=== PATIENT | female | born 1980 | race African-American/Black ===

== ENCOUNTER → 2016-05-03 | Outpatient (REF) | payer OTHER ==
[~2016-05-03] MED LIST: CLEO150C PO; COMP1TAB PO; IBUP-1114 PO; SENN8.6T17 PO; SILV-4 TOP; ZOFR8TAB PO
[2016-05-03 17:51] LABS: ALBUMIN 3.6 GM/DL (3.2-5.2); ALBUMIN/GLOBULIN RATIO 1.24 (1.00-1.93); ALKALINE PHOSPHATASE 166 U/L (45-117); ALT/SGPT 19 U/L (12-78); ANION GAP 8 MEQ/L (8-16); AST/SGOT 14 U/L (15-37); BLOOD UREA NITROGEN 7 MG/DL (7-18); CARBON DIOXIDE LEVEL 27 MEQ/L (21-32); CHLORIDE LEVEL 108 MEQ/L (98-107); CREATININE FOR GFR 0.66 MG/DL (0.55-1.02); FREE T4 1.04 NG/DL (0.76-1.46); GLOMERULAR FILTRATION RATE > 60.0 (>60); GLUCOSE, FASTING 80 MG/DL (70-105); POTASSIUM SERUM 4.3 MEQ/L (3.5-5.1); SODIUM LEVEL 143 MEQ/L (136-145); TOTAL PROTEIN 6.5 GM/DL (6.4-8.2)
== END | disposition home or self-care (01) ==
LOC: M SFHCLERA 10:51
PROVIDERS: ATTEND Family Medicine
DX: R10.11 Right upper quadrant pain (principal); E06.4 Drug-induced thyroiditis
CPT/HCPCS: 80053; 84439; 84443; G0463

== ENCOUNTER → 2016-05-10 | Outpatient (CLI) | payer OTHER ==
--- NOTE | 2016-05-10 15:49 | REP ---
Whole body bone scan: History: Right upper quadrant pain. History of left breast carcinoma diagnosed in March of 2015. Comparison bone scan is from June 16, 2015. Technique: 22.0 mCi of technetium 99m MDP is injected and standard whole body bone scan imaging is acquired. Scintigraphic findings: There is soft tissue uptake in both breasts, left a little more prominently than right unchanged from the prior study. This is nonspecific. There is uptake in bilateral kidneys and in the urinary bladder. Skeletal uptake is normal. There is no evidence to suggest skeletal metastatic disease. Exam is otherwise unremarkable. Impression: No evidence of bony metastasis. No change from comparison bone scan June 16, 2015. Signed by Guerrero Orellana MD 05/10/2016 04:51 P
== END | disposition home or self-care (01) ==
LOC: M RAD 09:19
PROVIDERS: ATTEND Family Medicine
DX: R10.11 Right upper quadrant pain (principal); Z85.3 Personal history of malignant neoplasm of breast

== ENCOUNTER → 2016-05-10 | Outpatient (CLI) | payer OTHER ==
--- NOTE | 2016-05-10 16:57 | REP ---
Right upper quadrant sonography: History: Right upper quadrant pain. History of breast carcinoma. Elevated liver function studies. Comparison study: July 08, 2014. CT study March 25, 2016. Findings: Scanning through the right upper quadrant of the abdomen demonstrates a normal sized, thin-walled gallbladder without evidence of stone or polyp. Common bile duct is normal measuring 0.3 cm in greatest diameter. No focal liver lesion is seen. Liver size is normal. No pancreatic abnormality is observed. No right renal abnormality is seen. There is no evidence of ascites. The right kidney measures 9.4 x 6.6 x 5.3 cm. Impression: Negative right upper quadrant sonography. Signed by Guerrero Orellana MD 05/10/2016 04:48 P
== END | disposition home or self-care (01) ==
LOC: M LRY 09:19
PROVIDERS: ATTEND Family Medicine
DX: R10.11 Right upper quadrant pain (principal); Z85.3 Personal history of malignant neoplasm of breast

== ENCOUNTER → 2016-05-12 | Outpatient (CLI) | payer OTHER ==
--- NOTE | 2016-05-12 15:20 | REP ---
Digital screening bilateral mammography with CAD: History: Personal history of breast carcinoma treated with lumpectomy, lymph node dissection, radiation therapy in April 23, 2015. Comparison mammography March 10, 2015 Mammographic findings: Breast parenchyma is heterogeneously dense in a pattern which inhibits the sensitivity of mammography. There is marked diffuse thickening of the skin of the left breast. There are multiple surgical clips in the left axillary soft tissues. A scar marker is seen projecting in the upper outer quadrant. The mass lesion observed laterally on March 10, 2015 is no longer apparent. There is diffuse stromal thickening in the left breast. These are compatible with expected post-treatment changes. The right breast shows no evidence of mass, neodensity, microcalcification or architectural distortion. Impression: BIRADS category 2 benign bilateral mammographic findings. Post-treatment changes on the left. Repeat screening mammography recommended 1 year. BI-RADS/ACR category 2 mammogram. Benign finding(s). Routine annual screening mammography (for women over age 40). This mammogram was interpreted with the aid of an FDA-approved computer-aided detection system. The patient states she/he had a clinical breast exam in January 2016. The patient letter being requested is M2. Dense. Signed by Guerrero Orellana MD 05/12/2016 04:34 P
== END | disposition home or self-care (01) ==
LOC: M RAD 14:03
PROVIDERS: ATTEND Internal Medicine Medical Oncology
DX: Z12.31 Encounter for screening mammogram for malignant neoplasm of breast (principal); Z85.3 Personal history of malignant neoplasm of breast; Z92.3 Personal history of irradiation

== ENCOUNTER → 2016-08-04 | Outpatient (REF) | payer OTHER ==
[2016-08-04 17:05] LABS: FREE T4 1.02 NG/DL (0.76-1.46)
== END ==
LOC: M SFHCLERA 14:02
PROVIDERS: ATTEND Family Medicine
DX: E06.4 Drug-induced thyroiditis (principal)
CPT/HCPCS: 84439; 84443; G0463

== ENCOUNTER → 2016-10-13 | Outpatient (REF) | payer OTHER | LOC: M SFHCLERA 11:54 | PROVIDERS: ATTEND Nurse Practitioner Family | DX: R35.0 Frequency of micturition (principal) ==

== ENCOUNTER 2017-04-15 13:39 | Emergency (ER) | payer OTHER ==
[2017-04-15] MEDS: NS 1,000 ML IV (15:44)
[2017-04-15 15:47] LABS: BASO % 0.4 % (0.0-1.0); EOS % 0.2 % (0.0-3.0); HEMATOCRIT 37.4 % (36.0-47.0); HEMOGLOBIN 11.7 g/dl (12.0-16.0); IMMATURE GRANULOCYTE % 0.2 % (0-0); LYMPH # 1.7 10^3/uL (1.5-4.5); LYMPH % 21.1 % (24.0-44.0); MEAN CORPUSCULAR HEMOGLOBIN 28.7 pg (27.0-33.0); MEAN CORPUSCULAR HGB CONC 31.3 g/dl (32.0-36.5); MEAN CORPUSCULAR VOLUME 91.9 fl (80.0-96.0); MONO # 0.7 10^3/uL (0.0-0.8); MONO % 8.6 % (0.0-5.0); NEUTROPHILS # 5.6 10^3/uL (1.8-7.7); NEUTROPHILS % 69.5 % (36.0-66.0); PLATELET COUNT, AUTOMATED 261 10^3/uL (150-450); RED BLOOD COUNT 4.07 10^6/uL (4.00-5.40); RED CELL DISTRIBUTION WIDTH 14.3 % (11.5-14.5)
[2017-04-15 16:01] LABS: CONTROL LINE HCG INT CTR LINE PRESENT; HCG, SERUM QUALITATIVE NEGATIVE (NEGATIVE)
[2017-04-15 16:10] LABS: ANION GAP 7 MEQ/L (8-16); BLOOD UREA NITROGEN 9 MG/DL (7-18); CALCIUM LEVEL 8.8 MG/DL (8.5-10.1); CARBON DIOXIDE LEVEL 25 MEQ/L (21-32); CHLORIDE LEVEL 109 MEQ/L (98-107); CPK CREATINE PHOSPHOKINASE 93 U/L (26-192); CREATININE FOR GFR 0.66 MG/DL (0.55-1.02); GLOMERULAR FILTRATION RATE > 60.0 (>60); GLUCOSE, FASTING 87 MG/DL (70-105); MB/CK RELATIVE INDEX 1.07 (< OR =4); POTASSIUM SERUM 4.5 MEQ/L (3.5-5.1); SODIUM LEVEL 141 MEQ/L (136-145); TROPONIN I < 0.02 NG/ML (< 0.10)
== END 2017-04-15 16:59 | disposition home or self-care (01) ==
LOC: M ED 13:39
DX: R55 Syncope and collapse (principal); Z85.3 Personal history of malignant neoplasm of breast
CPT/HCPCS: 71046

== ENCOUNTER → 2017-04-26 | Outpatient (CLI) | payer OTHER | LOC: M RAD 16:41 | DX: R55 Syncope and collapse (principal); Z53.9 Procedure and treatment not carried out, unspecified reason ==

== ENCOUNTER → 2017-05-16 | Outpatient (CLI) | payer OTHER | LOC: M RAD 08:16 | DX: R55 Syncope and collapse (principal); Z12.31 Encounter for screening mammogram for malignant neoplasm of breast | CPT/HCPCS: 70553 ==

== ENCOUNTER → 2017-05-16 | Outpatient (CLI) | payer OTHER | LOC: M RAD 09:50 | DX: Z12.31 Encounter for screening mammogram for malignant neoplasm of breast (principal) ==

== ENCOUNTER → 2017-06-06 | Outpatient (REF) | payer OTHER | LOC: M SFHCLERA 14:39 | DX: J02.9 Acute pharyngitis, unspecified (principal) ==

== ENCOUNTER 2017-06-08 09:21 | Emergency (ER) | payer OTHER ==
[2017-06-08 10:21] LABS: APPEARANCE, URINE CLEAR (CLEAR); BACTERIA, URINE AUTO NEGATIVE (NEGATIVE); BILIRUBIN, URINE AUTO NEGATIVE (NEGATIVE); BLOOD, URINE BLOOD NEGATIVE (NEGATIVE); COLOR, URINE YELLOW (YELLOW); GLUCOSE, URINE (UA) AUTO NEGATIVE (NEGATIVE); KETONE, URINE AUTO NEGATIVE (NEGATIVE); LEUKOCYTE ESTERASE, URINE AUTO NEGATIVE (NEGATIVE); MUCUS, URINE SMALL (NEGATIVE); NITRITE, URINE AUTO NEGATIVE (NEGATIVE); PROTEIN, URINE AUTO NEGATIVE (NEGATIVE); RBC, URINE AUTO 2 /HPF (0-3); SPECIFIC GRAVITY URINE AUTO 1.025 (1.002-1.035); SQUAMOUS EPITHELIAL CELL UR AU 2 /HPF (0-6); UROBILINOGEN, URINE AUTO 0.2 mg/dL (0.0-2.0); WBC, URINE AUTO 0 /HPF (0-3)
[2017-06-08 10:39] LABS: CONTROL LINE UCG INT CTR LINE PRESENT; URINE PREG TEST NEGATIVE (NEGATIVE)
[2017-06-08 10:40] LABS: BASO % 0.6 % (0.0-1.0); EOS # 0.1 10^3/uL (0.0-0.50); EOS % 0.9 % (0.0-3.0); HEMATOCRIT 39.4 % (36.0-47.0); HEMOGLOBIN 12.4 g/dl (12.0-16.0); IMMATURE GRANULOCYTE % 0.3 % (0-3.0); LYMPH # 2.2 10^3/uL (1.5-4.5); LYMPH % 32.6 % (24.0-44.0); MEAN CORPUSCULAR HEMOGLOBIN 28.3 pg (27.0-33.0); MEAN CORPUSCULAR HGB CONC 31.5 g/dl (32.0-36.5); MONO # 0.5 10^3/uL (0.0-0.8); MONO % 7.2 % (0.0-5.0); NEUTROPHILS # 3.9 10^3/uL (1.8-7.7); NEUTROPHILS % 58.4 % (36.0-66.0); PLATELET COUNT, AUTOMATED 292 10^3/uL (150-450); RED BLOOD COUNT 4.38 10^6/uL (4.00-5.40); RED CELL DISTRIBUTION WIDTH 13.9 % (11.5-14.5); WHITE BLOOD COUNT 6.7 10^3/uL (4.0-10.0)
[2017-06-08 11:02] LABS: ALBUMIN 3.5 GM/DL (3.2-5.2); ALKALINE PHOSPHATASE 116 U/L (45-117); ALT/SGPT 17 U/L (12-78); ANION GAP 6 MEQ/L (8-16); AST/SGOT 13 U/L (7-37); BILIRUBIN,TOTAL 1.2 MG/DL (0.2-1.0); BLOOD UREA NITROGEN 8 MG/DL (7-18); CALCIUM LEVEL 8.6 MG/DL (8.5-10.1); CARBON DIOXIDE LEVEL 26 MEQ/L (21-32); CHLORIDE LEVEL 107 MEQ/L (98-107); CREATININE FOR GFR 0.71 MG/DL (0.55-1.30); GLOMERULAR FILTRATION RATE > 60.0 (>60); GLUCOSE, FASTING 83 MG/DL (70-100); SODIUM LEVEL 139 MEQ/L (136-145); TOTAL PROTEIN 7.4 GM/DL (6.4-8.2)
[2017-06-08] MEDS: KETOROLAC 30 MG/ML VIAL (J1885) IV (11:13)
[2017-06-08] MEDS: NS 1,000 ML IV (11:14)
== END 2017-06-08 12:49 | disposition home or self-care (01) ==
LOC: M ED 09:21
DX: R10.9 Unspecified abdominal pain (principal); R35.8 Other polyuria; I10 Essential (primary) hypertension; Z85.3 Personal history of malignant neoplasm of breast; Z92.21 Personal history of antineoplastic chemotherapy
CPT/HCPCS: J1885

== ENCOUNTER → 2017-06-13 | Outpatient (REF) | payer OTHER | LOC: M SFHCLERA 10:41 | DX: R50.9 Fever, unspecified (principal) ==

== ENCOUNTER → 2017-06-23 | Outpatient (CLI) | payer OTHER ==
[~2017-06-23] MED LIST changes: -CLEO150C PO; -COMP1TAB PO; +GASTROGRAFIN SOLUTION 30ML (Q9963) As Ordered; -IBUP-1114 PO; +ISOVUE-370 76% 100ML VIAL (Q9967) As Ordered; -SENN8.6T17 PO; -SILV-4 TOP; -ZOFR8TAB PO
== END ==
LOC: M RAD 10:40
DX: Z85.3 Personal history of malignant neoplasm of breast (principal)
CPT/HCPCS: Q9963

== ENCOUNTER → 2017-11-21 | Outpatient (REF) | payer OTHER ==
[2017-11-21 17:07] LABS: ESTIMATED AVERAGE GLUCOSE 74 MG/DL (60-110); HEMOGLOBIN A1c 4.2 %
[2017-11-21 17:08] LABS: ALBUMIN 3.3 GM/DL (3.2-5.2); ALKALINE PHOSPHATASE 90 U/L (45-117); ALT/SGPT 17 U/L (12-78); ANION GAP 9 MEQ/L (8-16); AST/SGOT 8 U/L (7-37); BILIRUBIN,TOTAL 0.8 MG/DL (0.2-1.0); BLOOD UREA NITROGEN 10 MG/DL (7-18); CALCIUM LEVEL 8.5 MG/DL (8.5-10.1); CARBON DIOXIDE LEVEL 26 MEQ/L (21-32); CHLORIDE LEVEL 108 MEQ/L (98-107); CREATININE FOR GFR 0.67 MG/DL (0.55-1.30); FREE T4 0.96 NG/DL (0.76-1.46); GLOMERULAR FILTRATION RATE > 60.0 (>60); GLUCOSE, FASTING 81 MG/DL (70-100); POTASSIUM SERUM 3.9 MEQ/L (3.5-5.1); SODIUM LEVEL 143 MEQ/L (136-145); TOTAL PROTEIN 6.6 GM/DL (6.4-8.2)
[2017-11-21 17:13] LABS: APPEARANCE, URINE HAZY (CLEAR); BACTERIA, URINE AUTO NEGATIVE (NEGATIVE); BILIRUBIN, URINE AUTO NEGATIVE (NEGATIVE); BLOOD, URINE BLOOD NEGATIVE (NEGATIVE); COLOR, URINE YELLOW (YELLOW); GLUCOSE, URINE (UA) AUTO NEGATIVE (NEGATIVE); KETONE, URINE AUTO NEGATIVE (NEGATIVE); LEUKOCYTE ESTERASE, URINE AUTO NEGATIVE (NEGATIVE); MUCUS, URINE SMALL (NEGATIVE); NITRITE, URINE AUTO NEGATIVE (NEGATIVE); PROTEIN, URINE AUTO NEGATIVE (NEGATIVE); RBC, URINE AUTO 0 /HPF (0-3); SPECIFIC GRAVITY URINE AUTO 1.024 (1.002-1.035); SQUAMOUS EPITHELIAL CELL UR AU 4 /HPF (0-6); UROBILINOGEN, URINE AUTO 0.2 mg/dL (0.0-2.0); WBC, URINE AUTO 1 /HPF (0-3)
== END ==
LOC: M SFHCLERA 13:33
DX: R35.0 Frequency of micturition (principal); E06.4 Drug-induced thyroiditis
CPT/HCPCS: 84443

== ENCOUNTER 2017-11-29 15:16 | Outpatient (CLI) | payer OTHER ==
[2017-11-29] MEDS ORDERED: PROHANCE 279.3MG/ML 5ML VIAL (A9576) As Ordered (15:35)
[2017-11-29] MEDS ORDERED: PROHANCE 279.3MG/ML 15ML VIAL (A9576) As Ordered (15:35)
[2017-12-15] MEDS ORDERED: PROHANCE 279.3MG/ML 5ML VIAL (A9576) As Ordered (15:20)
[2017-12-15] MEDS ORDERED: PROHANCE 279.3MG/ML 15ML VIAL (A9576) As Ordered (15:21)
== END 2017-12-15 ==
LOC: M RAD 15:16
DX: N64.4 Mastodynia (principal); Z85.3 Personal history of malignant neoplasm of breast; Z92.3 Personal history of irradiation
CPT/HCPCS: A9576

== ENCOUNTER → 2018-06-13 | Outpatient (REF) | payer OTHER ==
[~2018-06-13] MED LIST changes: +CEFD1CAP8; +CLEO150C PO; +COMP1TAB PO; +FERR325T3 PO; -GASTROGRAFIN SOLUTION 30ML (Q9963) As Ordered; +IBUP-1114 PO; -ISOVUE-370 76% 100ML VIAL (Q9967) As Ordered; +SENN8.6T17 PO; +SILV-4 TOP; +ZOFR8TAB24 PO
[2018-06-13 17:17] LABS: BASO % 0.5 % (0.0-1.0); EOS # 0.1 10^3/uL (0.0-0.50); HEMATOCRIT 38.1 % (36.0-47.0); HEMOGLOBIN 11.6 g/dl (12.0-15.5); LYMPH # 2.2 10^3/uL (1.5-4.5); LYMPH % 28.2 % (24.0-44.0); MEAN CORPUSCULAR HEMOGLOBIN 27.8 pg (27.0-33.0); MEAN CORPUSCULAR HGB CONC 30.4 g/dl (32.0-36.5); MEAN CORPUSCULAR VOLUME 91.1 fl (80.0-96.0); MONO # 0.6 10^3/uL (0.0-0.8); MONO % 7.1 % (0.0-5.0); NEUTROPHILS % 62.8 % (36.0-66.0); PLATELET COUNT, AUTOMATED 329 10^3/uL (150-450); RED BLOOD COUNT 4.18 10^6/uL (4.00-5.40); WHITE BLOOD COUNT 7.9 10^3/uL (4.0-10.0)
[2018-06-13 17:23] LABS: FREE T4 1.17 NG/DL (0.76-1.46); THYROID STIMULATING HORMONE 1.12 uIU/ML (0.358-3.740)
== END ==
LOC: M SFHCLERA 12:04
PROVIDERS: ATTEND Family Medicine
DX: F45.8 Other somatoform disorders (principal)
CPT/HCPCS: 84439; 84443; 85025; G0463

== ENCOUNTER → 2018-07-11 | Outpatient (REF) | payer OTHER | LOC: M SFHCLERA 13:29 | PROVIDERS: ATTEND Physician Assistant | DX: J02.9 Acute pharyngitis, unspecified (principal) ==

== ENCOUNTER 2018-08-14 10:35 | Emergency (ER) | payer OTHER ==
[~2018-08-14] VITALS: Ht 152.4 cm; Wt 90.0 kg
[2018-08-14 10:35] VITALS: BP 168/96
[2018-08-14] MEDS ORDERED: ONDANSETRON 4MG/2ML VIAL (J2405) IV ONE (11:00)
[2018-08-14] MEDS ORDERED: NS 1,000 ML IV ONE (11:00)
[2018-08-14] MEDS ORDERED: KETOROLAC 30 MG/ML VIAL (J1885) IV ONE (11:00)
[2018-08-14 11:33] LABS: BASO % 0.4 % (0.0-1.0); EOS # 0.1 10^3/uL (0.0-0.50); EOS % 0.7 % (0.0-3.0); HEMATOCRIT 38.6 % (36.0-47.0); HEMOGLOBIN 12.1 g/dl (12.0-15.5); LYMPH # 2.2 10^3/uL (1.5-4.5); LYMPH % 30.8 % (24.0-44.0); MEAN CORPUSCULAR HEMOGLOBIN 28.7 pg (27.0-33.0); MEAN CORPUSCULAR HGB CONC 31.3 g/dl (32.0-36.5); MEAN CORPUSCULAR VOLUME 91.5 fl (80.0-96.0); MONO # 0.6 10^3/uL (0.0-0.8); MONO % 8.3 % (0.0-5.0); NEUTROPHILS # 4.3 10^3/uL (1.8-7.7); NEUTROPHILS % 59.7 % (36.0-66.0); PLATELET COUNT, AUTOMATED 308 10^3/uL (150-450); RED BLOOD COUNT 4.22 10^6/uL (4.00-5.40); WHITE BLOOD COUNT 7.1 10^3/uL (4.0-10.0)
[2018-08-14 11:58] LABS: ALBUMIN 3.7 GM/DL (3.2-5.2); ALT/SGPT 21 U/L (12-78); AMYLASE 47 U/L (25-115); BILIRUBIN,DIRECT 0.2 MG/DL (0.0-0.2); BILIRUBIN,TOTAL 0.9 MG/DL (0.2-1.0); BLOOD UREA NITROGEN 11 MG/DL (7-18); CALCIUM LEVEL 8.4 MG/DL (8.5-10.1); CARBON DIOXIDE LEVEL 24 MEQ/L (21-32); CHLORIDE LEVEL 109 MEQ/L (98-107); CREATININE FOR GFR 0.85 MG/DL (0.55-1.30); GLOMERULAR FILTRATION RATE > 60.0 (>58); GLUCOSE, FASTING 89 MG/DL (70-100); LIPASE 44 U/L (73-393); POTASSIUM SERUM 3.6 MEQ/L (3.5-5.1); SODIUM LEVEL 140 MEQ/L (136-145); TOTAL PROTEIN 7.3 GM/DL (6.4-8.2)
[2018-08-14] MEDS ORDERED: ONDA4TAB6 PO (12:41)
--- NOTE | 2018-08-14 12:45 | REP ---
CT abdomen and pelvis without IV or oral contrast: History: Right-sided flank pain. There is also a history of prior left breast carcinoma. Comparison study: June 23, 2017. CT findings: Digital preliminary toby maker radiograph shows a normal bowel gas pattern. An IUD is seen projecting within the pelvis. On axial CT images, the lung bases are clear. No pleural effusion or upper abdominal ascites is seen. There is some diffuse skin thickening in the left breast soft tissues unchanged from the comparison study consistent with post radiation change. The liver and the spleen are normal in size, homogeneous in texture. No adrenal lesion is seen. Gallbladder is unremarkable. No pancreatic abnormality is seen. There is no evidence of intrarenal calculus or hydronephrosis on either side. No retroperitoneal mass or adenopathy is seen. Normal appendix is seen in the right lower quadrant. There are three or four diverticula affecting the hepatic flexure of the colon and the sigmoid segment of the colon without CT evidence of diverticulitis. The IUD is seen in the uterus with one of its limbs extending nearly to the anterior serosal surface of the uterus. This is anteverted and somewhat retroflexed. There is a Nabothian cyst. Urinary bladder is empty but otherwise unremarkable. No ovarian abnormality is seen. No abdominal wall defect is observed. Bone window settings show no bony destructive lesion. Impression: No urinary tract calculus noted. Scattered diverticulosis of the right and left colon without evidence of diverticulitis. IUD in the uterus with one of its limbs in a subserosal location consistent with penetration of the myometrium. Normal appendix. No acute abdominal or pelvic abnormality seen. Post radiation changes noted in the left inferior breast. Electronically Signed by Guerreor Orellana MD 08/14/2018 07:19 P
--- NOTE | 2018-08-14 13:05 | REP ---
Pelvic sonography: History: IUD placement evaluation. Abnormality noted on today's CT study. IUD in place since 2009. Findings: Uterine dimensions are 9.0 x 4.1 x 5.2 cm. Endometrial echo 0.5 cm thick and centrally placed. Transabdominal scanning is performed. The patient declined transvaginal imaging. Visualized bladder poon are smooth. The IUD is seen in place in the uterus. One arm of the IUD is seen at the peripheral edge of the uterine myometrium, serosal surface. This corresponds with the CT findings. The IUD is noted in the lower uterine segment and cervix. Normal ovaries are seen. Right ovary measures 2.3 x 1.4 x 1.7 cm. Left ovarian dimensions are 2.8 x 2.2 x 2.2 cm. Resistive indices are normal in the ovaries by Doppler 0.51 on the right and 0.55 on the left. Impression: IUD is seen in the lower uterine segment and cervix with one limb penetrating the myometrium nearly to the serosal surface. Electronically Signed by Guerrero Orellana MD 08/14/2018 07:21 P
== END 2018-08-14 12:46 | disposition home or self-care (01) ==
LOC: M ED 10:35
DX: R10.9 Unspecified abdominal pain (principal); T83.32XA Displacement of intrauterine contraceptive device, initial encounter; Y76.2 Prosthetic and other implants, materials and accessory obstetric and gynecological devices associated with adverse incidents; Z85.3 Personal history of malignant neoplasm of breast; K57.30 Diverticulosis of large intestine without perforation or abscess without bleeding; Z92.3 Personal history of irradiation
CPT/HCPCS: 74176; 76856; 80048; 80076; 81001; 82150; 83690; 84702; 85025; 87086; 93976; 96374; 99284; J2405

== ENCOUNTER → 2018-09-11 | Outpatient (CLI) | payer OTHER ==
[~2018-09-11] MED LIST changes: +IBUP1TAB7 PO; +ONDA4TAB6 PO; +PERC5TAB12 PO
--- NOTE | 2018-09-11 16:23 | ECGEPIP ---
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
== END ==
LOC: M EKG 14:40
PROVIDERS: ATTEND Obstetrics & Gynecology
DX: Z01.818 Encounter for other preprocedural examination (principal); E03.9 Hypothyroidism, unspecified; R03.0 Elevated blood-pressure reading, without diagnosis of hypertension

== ENCOUNTER 2018-09-13 09:06 | Day surgery (SDC) | payer OTHER ==
[~2018-09-13] VITALS: Ht 152.4 cm; Wt 87.1 kg
[~2018-09-13 09:06] MED LIST changes: +ACETAMINOPHEN *IV* 1,000 MG IV ONE; -IBUP1TAB7 PO; +LIDOCAINE 1% MDV 20ML VIAL SQ PRN; +LR 1,000 ML IV ONE; -PERC5TAB12 PO
[2018-09-13 09:41] LABS: URINE PREG TEST NEGATIVE (NEGATIVE)
[2018-09-13 09:47] LABS: HEMATOCRIT 40.9 % (36.0-47.0); MEAN CORPUSCULAR HEMOGLOBIN 28.8 pg (27.0-33.0); MEAN CORPUSCULAR HGB CONC 31.8 g/dl (32.0-36.5); MEAN CORPUSCULAR VOLUME 90.5 fl (80.0-96.0); PLATELET COUNT, AUTOMATED 318 10^3/uL (150-450); RED BLOOD COUNT 4.52 10^6/uL (4.00-5.40); WHITE BLOOD COUNT 6.9 10^3/uL (4.0-10.0)
[2018-09-13 10:11] LABS: BLOOD UREA NITROGEN 9 MG/DL (7-18); CALCIUM LEVEL 8.7 MG/DL (8.5-10.1); CARBON DIOXIDE LEVEL 22 MEQ/L (21-32); CHLORIDE LEVEL 106 MEQ/L (98-107); CREATININE FOR GFR 0.87 MG/DL (0.55-1.30); GLOMERULAR FILTRATION RATE > 60.0 (>58); GLUCOSE, FASTING 75 MG/DL (70-100); POTASSIUM SERUM 3.7 MEQ/L (3.5-5.1); SODIUM LEVEL 138 MEQ/L (136-145)
[2018-09-13] MEDS ORDERED: FLUORESCEIN 10% (100MG/ML) 5 ML VIAL As Ordered ONE (10:54)
[2018-09-13] MEDS ORDERED: BUPIVACAINE/EPIN 0.25% 30 ML VIAL As Ordered ONE (10:54)
[2018-09-13] MEDS ORDERED: MIDAZOLAM INJ 2 MG/2 ML VIAL (J2250) As Ordered ONE (11:43)
[2018-09-13] MEDS ORDERED: PROPOFOL 200 MG/20 ML VIAL As Ordered ONE (11:43)
[2018-09-13] MEDS ORDERED: dexameTHASONE 4 MG/ML 1ML VIAL (J1100) As Ordered ONE (11:43)
[2018-09-13] MEDS ORDERED: LIDOCAINE 2% INJ 100 MG/5 ML SDV (FOR ANES.) As Ordered ONE (11:43)
[2018-09-13] MEDS ORDERED: HYDROmorphone HCL 2 MG/ML 1ML VIAL (J1170) As Ordered ONE (11:43)
[2018-09-13] MEDS ORDERED: fentaNYL 100 MCG/2 ML INJECTION (J3010) As Ordered ONE ×2 (11:43→13:51)
[2018-09-13] MEDS ORDERED: ROCURONIUM BROMIDE 50 MG/5 ML VIAL As Ordered ONE ×2 (11:43→12:56)
[2018-09-13] MEDS ORDERED: ACETAMINOPHEN 1000MG 100ML IV BTL (OFIRMEV) (J0131 PER 10MG) As Ordered ONE (11:43)
[2018-09-13] MEDS ORDERED: ONDANSETRON 4MG/2ML VIAL (J2405) As Ordered ONE (11:52)
[2018-09-13] MEDS ORDERED: SUGAMMADEX SODIUM 500 MG/5 ML VIAL (BRIDION) As Ordered ONE (12:26)
[2018-09-13] MEDS ORDERED: IBUP1TAB7 PO (13:44)
[2018-09-13] MEDS ORDERED: PERC5TAB12 PO (13:44)
[2018-09-13] MEDS ORDERED: oxyCODONE 5MG TAB As Ordered ONE (13:51)
[2018-09-13] MEDS: fentaNYL 100 MCG/2 ML INJECTION (J3010) IV PRN ×4 (13:54→14:15)
[2018-09-13] MEDS ORDERED: LR 1,000 ML IV SCH ×2 (14:00)
[2018-09-13] MEDS ORDERED: METOCLOPRAMIDE INJ 10MG/2ML VIAL (J2765) IV PRN (14:00)
[2018-09-13] MEDS ORDERED: PROMETHAZINE INJ 25 MG/ML VIAL (J2550) IV PRN (14:00)
[2018-09-13] MEDS ORDERED: oxyCODONE 5MG TAB PO PRN (14:00)
--- NOTE | 2018-09-13 14:13 | RO ---
DATE OF PROCEDURE: 09/13/2018 Paris Sim is a 38-year-old female with extensive history of pelvic pain. She had a retained segment of her intrauterine device (IUD) and two prior sections. After counseling in the office, a decision was made for total robotic-assisted hysterectomy and removal of both tubes and cystoscopy. PREOPERATIVE DIAGNOSES: 1. Pelvic pain. 2. Retained intrauterine device. 3. section times two. POSTOPERATIVE DIAGNOSES: 1. Pelvic pain. 2. Retained intrauterine device. 3. section times two. 4. Dense omental and bladder adhesion. The uterus was adherent to the anterior abdominal wall. PROCEDURES: 1. Robotic-assisted total hysterectomy. 2. Removal of both tubes. 3. Cystoscopy. 4. Extensive lysis of adhesions. ANESTHESIA: General. SURGEON: Edu Cee DO CAP JEWEL PLATE ASSEMBLER: TYE Mcwilliams COMPLICATION: None. ESTIMATED BLOOD LOSS: Approximately 50 mL. SPECIMEN SENT TO THE LABORATORY: The uterus, cervix, and both tubes. DESCRIPTION OF PROCEDURE: After obtaining informed consent, the patient was taken to the operating room, where general anesthetic was found to be adequate. She was then draped and prepped in the usual sterile fashion, lithotomy position. At this point, a Mathew catheter was placed in the bladder for drainage. We then placed a HUMI II uterine manipulator. Attention was turned to the abdomen, where the Veress needle was placed at the umbilicus. The abdomen was insufflated with CO2 gas to approximately 3.5 liters. We then placed an 8-mm port in the supraumbilical area for the camera port. On the left side, two 8-mm ports were placed, one for robotic arm one and the other for the assist port. On the right side, an 8-mm right lateral port was placed for robotic arm two. After proper placement of the ports, the patient was placed in steep Trendelenburg. The robot was brought to the patient's right side and docked in the usual fashion. A vessel sealer was placed in arm two and a bipolar grasper in arm one. At this point, I unscrubbed and went to the surgeon console and began the surgery. Upon evaluating the pelvis, the uterus was found to be adherent to the anterior abdominal wall, which appeared to have some omental herniation down to that area, adherent to the anterior abdominal wall. The left ovary was also found to be adherent to the pelvic sidewall. At this point, with careful dissection using the vessel sealer and a bipolar grasper, we were able to free up the uterus off of the anterior abdominal wall; and at this point, the mesosalpinx was identified, and the left tube was transected all the way down to the utero-ovarian ligament. The utero-ovarian ligament was cauterized and cut using the vessel sealer. Serial bites were taken to include the round ligament, as well as the uterine arteries. After securing the uterine arteries on that side, attention was turned to the right side, which was done in a similar fashion. At this point, the anterior leaflet of the broad ligament was dissected to free up the bladder from the lower uterine segment. The bladder was completely pushed out of the operative field. We were able to visualize the cuff of the uterine manipulator. The posterior aspect was done in a similar fashion. At this point, the vessel sealer was removed, an Endo Shear was introduced, and an anterior and posterior colpotomy was then performed, and the uterus, as well as both tubes, were removed through the vagina and left in place to maintain pneumoperitoneum. The Endo Shear was removed. A needle driver license examiner was inserted, and a 2-0 V-Loc suture was also inserted. The vaginal cuff was closed in a running fashion using the 2-0 V-Loc suture. Pelvis copiously irrigated with normal saline and suctioned out. Good hemostasis noted. 1 mL of Furacin was given by the anesthesiologist to help with the cystoscopy. At this point, I rescrubbed and went over to the patient's side. The bladder was retrograde filled with 250 mL of normal saline. Mathew catheter removed. A cystoscope inserted. Cystoscopy performed. Bilateral ureteral jets noted. No evidence of any bladder injury noted. At this point, the cystoscope was removed, and the Mathew catheter was replaced back in the bladder for drainage. The robotic ports were removed and closed using 2-0 Vicryl in subcuticular fashion. 0.25% Marcaine was placed for postoperative pain. Dermabond placed. The patient tolerated the procedure well. She was then transferred to recovery room in stable condition.
[2018-09-13] MEDS ORDERED: PERCOCET 5MG/325MG TAB PO PRN (14:15)
[2018-09-13 15:05] VITALS: BP 143/79
[2018-09-13 15:32] VITALS: BP 136/84
[2018-09-13] MEDS: SIMETHICONE 80 MG CHEW TAB PO SCH ×2 (15:36→17:25)
[2018-09-13] MEDS: IBUPROFEN 800 MG TAB PO SCH ×2 (15:36→17:25)
[2018-09-13 16:25] VITALS: BP 138/74
[2018-09-13 17:34] VITALS: BP 147/89
[2018-09-13 18:35] VITALS: BP 140/75
[2018-09-14] VITALS: BP 124/71
[2018-09-14] MEDS: SIMETHICONE 80 MG CHEW TAB PO SCH ×2 (00:38→06:31)
[2018-09-14] MEDS: IBUPROFEN 800 MG TAB PO SCH ×2 (00:38→06:32)
[2018-09-14 05:00] VITALS: BP 122/76
[2018-09-14 08:00] VITALS: BP 109/69
== END 2018-09-14 12:15 | disposition home or self-care (01) ==
LOC: M SDC 09:06 → M PED 15:00 → M SDC 09-14 12:15
PROVIDERS: ATTEND Obstetrics & Gynecology
DX: R10.2 Pelvic and perineal pain (principal); N73.6 Female pelvic peritoneal adhesions (postinfective); N72 Inflammatory disease of cervix uteri; T83.32XA Displacement of intrauterine contraceptive device, initial encounter; I10 Essential (primary) hypertension; E03.9 Hypothyroidism, unspecified; D64.9 Anemia, unspecified; M12.9 Arthropathy, unspecified; R51 Headache; E66.9 Obesity, unspecified; Z68.36 Body mass index [BMI] 36.0-36.9, adult; Z92.21 Personal history of antineoplastic chemotherapy; Z92.3 Personal history of irradiation; Z85.3 Personal history of malignant neoplasm of breast; X58.XXXA Exposure to other specified factors, initial encounter; Y93.9 Activity, unspecified; Y92.9 Unspecified place or not applicable; Y99.9 Unspecified external cause status
CPT/HCPCS: 36415; 58571; 58660; 80048; 84703; 85027; 86850; 86900; 86901; 88307; J0131; J0690; J1100; J1170; J2250; J2405; J3010

== ENCOUNTER → 2018-11-24 | Outpatient (CLI) | payer OTHER ==
[~2018-11-24] MED LIST changes: +ACET-841 PO; -ACETAMINOPHEN *IV* 1,000 MG IV ONE; +IBUP1TAB7 PO; -LIDOCAINE 1% MDV 20ML VIAL SQ PRN; -LR 1,000 ML IV ONE; +NAPR-885 PO; +PERC5TAB12 PO
--- NOTE | 2018-11-24 16:26 | REP ---
ULTRASOUND RIGHT AXILLA: Real-time sonographic evaluation of the right axilla were performed. Reportedly the patient has had right axillary pain for a few weeks. Comparison made with prior MRI of the breasts 12/15/2017. There is a lymph node with an echogenic fatty hilum in the right axillary region measuring 1.6 x 0.8 x 1.1 cm. This probably corresponds to the previously noted lymph node on the MRI which measured about 2.0 x 1.0 x 0.9 cm. No other cystic or solid nodule is seen. IMPRESSION: A right axillary lymph node is visualized which appears slightly smaller than on prior MRI 12/15/2017. Electronically Signed by Jhon Thomas MD 11/26/2018 11:06 P
== END ==
LOC: M RAD 15:33
PROVIDERS: ATTEND Family Medicine
DX: M79.621 Pain in right upper arm (principal); Z85.3 Personal history of malignant neoplasm of breast

== ENCOUNTER 2018-12-04 18:09 | Emergency (ER) | payer OTHER ==
[~2018-12-04] VITALS: Ht 152.4 cm; Wt 85.8 kg
[~2018-12-04 18:09] MED LIST changes: -ACET-841 PO; -NAPR-885 PO
[2018-12-04] MEDS ORDERED: ACET-841 PO (18:16)
--- NOTE | 2018-12-04 20:06 | REP ---
Clinical: Right wrist pain with recent trauma. Technique: AP, lateral, bilateral oblique views right wrist . Findings: The carpal bones, surrounding osseous structures, soft tissues, and joint spaces are normal. There is no evidence for acute fracture or dislocation. No subcutaneous emphysema or radiodense foreign body. Impression: Normal wrist series. No evidence for fracture or dislocation Electronically Signed by Alejo Puckett MD 12/04/2018 07:58 P
[2018-12-04] MEDS ORDERED: NAPR-885 PO (20:44)
[2018-12-04] MEDS ORDERED: NAPROXEN 250 MG TAB PO ONE (20:45)
[2018-12-04 20:50] VITALS: BP 133/96
== END 2018-12-04 20:51 | disposition home or self-care (01) ==
LOC: M ED 18:09
DX: S46.911A Strain of unspecified muscle, fascia and tendon at shoulder and upper arm level, right arm, initial encounter (principal); W19.XXXA Unspecified fall, initial encounter; Y92.9 Unspecified place or not applicable

== ENCOUNTER → 2019-01-04 | Outpatient (CLI) | payer OTHER ==
[~2019-01-04] MED LIST changes: +ACET-841 PO; +NAPR-885 PO
--- NOTE | 2019-01-05 16:21 | REP ---
Right shoulder: Four views. History: Tendonitis. Right shoulder pain. Findings: Four views of the right shoulder demonstrate normal alignment of the glenohumeral and acromioclavicular joints. Periarticular soft tissues are unremarkable. No erosive changes seen. Impression: Negative radiographs of the right shoulder. Electronically Signed by Guerrero Orellana MD 01/05/2019 04:30 P
== END ==
LOC: M LRY 15:40
PROVIDERS: ATTEND Family Medicine
DX: M75.81 Other shoulder lesions, right shoulder (principal)

== ENCOUNTER → 2019-01-04 | Outpatient (REF) | payer OTHER ==
[2019-01-04 20:49] LABS: BASO % 0.5 % (0.0-1.0); EOS # 0.1 10^3/uL (0.0-0.5); EOS % 1.3 % (0.0-3.0); HEMATOCRIT 38.1 % (36.0-47.0); HEMOGLOBIN 11.9 g/dl (12.0-15.5); LYMPH % 26.4 % (24.0-44.0); MEAN CORPUSCULAR HEMOGLOBIN 28.8 pg (27.0-33.0); MEAN CORPUSCULAR HGB CONC 31.2 g/dl (32.0-36.5); MEAN CORPUSCULAR VOLUME 92.3 fl (80.0-96.0); MONO # 0.7 10^3/uL (0.0-0.8); MONO % 9.6 % (0.0-5.0); NEUTROPHILS # 4.7 10^3/uL (1.5-8.5); NEUTROPHILS % 61.8 % (36.0-66.0); PLATELET COUNT, AUTOMATED 325 10^3/uL (150-450); RED BLOOD COUNT 4.13 10^6/uL (4.00-5.40); WHITE BLOOD COUNT 7.6 10^3/uL (4.0-10.0)
[2019-01-04 21:17] LABS: ERYTHROCYTE SEDIMENTATION RATE 11 mm/hr (0-20)
[2019-01-04 21:38] LABS: ALBUMIN 3.5 GM/DL (3.2-5.2); ALT/SGPT 19 U/L (12-78); BLOOD UREA NITROGEN 10 MG/DL (7-18); C REACTIVE PROTEIN QUANTITATIV 3.12 MG/DL (0.00-0.30); CALCIUM LEVEL 8.7 MG/DL (8.5-10.1); CARBON DIOXIDE LEVEL 29 MEQ/L (21-32); CHLORIDE LEVEL 109 MEQ/L (98-107); CREATININE FOR GFR 0.74 MG/DL (0.55-1.30); FREE T4 1.15 NG/DL (0.76-1.46); GLOMERULAR FILTRATION RATE > 60.0 (>58); GLUCOSE, FASTING 82 MG/DL (70-100); POTASSIUM SERUM 4.2 MEQ/L (3.5-5.1); SODIUM LEVEL 142 MEQ/L (136-145); THYROID STIMULATING HORMONE 0.895 uIU/ML (0.358-3.740)
[2019-01-07 00:26] LABS: Lyme Disease IgG/IgM Antibodie <0.91 ISR (0.00-0.90); Lyme Disease IgM Ab Quantitati <0.80 index (0.00-0.79)
== END ==
LOC: M SFHCLERA 15:31
PROVIDERS: ATTEND Family Medicine
DX: R42 Dizziness and giddiness (principal); M75.81 Other shoulder lesions, right shoulder
CPT/HCPCS: 73030; 80053; 84439; 84443; 85025; 85652; 86140; 86617; G0463

== ENCOUNTER → 2019-01-26 | Outpatient (CLI) | payer OTHER ==
[~2019-01-26] MED LIST changes: +PROHANCE 279.3MG/ML 15ML VIAL (A9576) As Ordered ONE; +PROHANCE 279.3MG/ML 5ML VIAL (A9576) As Ordered ONE
--- NOTE | 2019-01-26 17:15 | REP ---
MRI brain: 01/26/2019. Indication: Breast carcinoma. Metastatic screening. Comparison: None. Technique: Multiplanar short and long TR sequences of the brain were obtained without IV Gadolinium. Findings: There are no areas of restricted diffusion. There is no intracranial mass effect or hydrocephalous. The large intracranial flow voids are unremarkable. No significant signal abnormalities are present within the brainstem or brain parenchyma. The midline structures, and craniocervical junction are unremarkable. Impression: There is no evidence of acute intracranial process or intracranial metastatic disease. Electronically Signed by Carlos Bolden DO 01/26/2019 05:06 P
--- NOTE | 2019-01-27 07:49 | REP ---
MRI BILATERAL BREASTS WITH AND WITHOUT CONTRAST: HISTORY: Left breast cancer, stage III poorly differentiated infiltrating ductal carcinoma treated with lumpectomy, radiation, and chemotherapy. COMPARISON: MRI, 12/15/2017. TECHNIQUE: Multiple sequences obtained in the axial, coronal, and sagittal planes prior to and following the intravenous administration of 17 mL ProHance. Images are evaluated in the [employer] software including dynamic post-IV gadolinium axial T1-fat sat images, subtraction images, color overlay images, CAD images, and MIP reconstruction images. Left breast is smaller than the right, and there are postsurgical fibrotic changes and postsurgical architectural distortion in the upper outer quadrant. There is some skin thickening, which is stable. Moderate fibroglandular tissue is seen bilaterally. Two cysts are seen laterally in the right breast, maximum diameter is 8 mm. Bilateral right axillary lymph nodes are unchanged and not significantly enlarged. There is very mild background parenchymal enhancement bilaterally. There are again prominent superficial venous structures in both breasts. However, no suspicious enhancing or morphologic abnormality is seen bilaterally. IMPRESSION: BI-RADS category 2, benign, stable bilateral breast MRI. Posttreatment changes, left breast. Two small cysts, right breast. No suspicious enhancing mass or morphologic abnormality. Electronically Signed by Jhon Thomas MD 01/27/2019 03:39 P
== END ==
LOC: M RAD 15:23
PROVIDERS: ATTEND Family Medicine
DX: Z12.31 Encounter for screening mammogram for malignant neoplasm of breast (principal)

== ENCOUNTER → 2019-02-26 | Outpatient (CLI) | payer OTHER ==
[~2019-02-26] MED LIST changes: -PROHANCE 279.3MG/ML 15ML VIAL (A9576) As Ordered ONE; -PROHANCE 279.3MG/ML 5ML VIAL (A9576) As Ordered ONE
--- NOTE | 2019-02-26 09:48 | REP ---
Clinical: Right upper quadrant pain. Technique: Real time centeno scale ultrasound examination using curved array transducer. Findings: Liver and pancreas are normal in contour, size, echogenicity. No focal hepatic or pancreatic lesion identified. The gallbladder is normal and without gallstones, wall thickening, or pericholecystic fluid. No biliary ductal dilatation is appreciated and the common bile duct measures 3.4 mm diameter. Right kidney is normal in reniform shape without hydronephrosis and measures 8.9 x 5.4 x 4.0 cm. Impression: Normal right upper quadrant/gallbladder ultrasound. Electronically Signed by Alejo Puckett MD 02/26/2019 09:36 A
== END ==
LOC: M LRY 08:04
PROVIDERS: ATTEND Nurse Practitioner Family
DX: R10.9 Unspecified abdominal pain (principal)

== ENCOUNTER 2019-05-07 08:10 | Emergency (ER) | payer OTHER ==
[~2019-05-07] VITALS: Ht 152.4 cm; Wt 85.6 kg
[2019-05-07] MEDS ORDERED: TETRACAINE 0.5% OPHTH SOLN 4ML OU ONE (08:45)
[2019-05-07 09:02] LABS: BASO % 0.3 % (0.0-1.0); EOS # 0.1 10^3/uL (0.0-0.5); EOS % 0.9 % (0.0-3.0); HEMATOCRIT 40.1 % (36.0-47.0); HEMOGLOBIN 12.3 g/dl (12.0-15.5); LYMPH # 2.3 10^3/uL (1.5-5.0); MEAN CORPUSCULAR HEMOGLOBIN 28.3 pg (27.0-33.0); MEAN CORPUSCULAR HGB CONC 30.7 g/dl (32.0-36.5); MEAN CORPUSCULAR VOLUME 92.4 fl (80.0-96.0); MONO # 0.6 10^3/uL (0.0-0.8); MONO % 7.1 % (0.0-5.0); NEUTROPHILS % 62.4 % (36.0-66.0); PLATELET COUNT, AUTOMATED 279 10^3/uL (150-450); RED BLOOD COUNT 4.34 10^6/uL (4.00-5.40); WHITE BLOOD COUNT 7.9 10^3/uL (4.0-10.0)
[2019-05-07 09:13] LABS: BLOOD UREA NITROGEN 11 MG/DL (7-18); CALCIUM LEVEL 8.6 MG/DL (8.5-10.1); CARBON DIOXIDE LEVEL 24 MEQ/L (21-32); CHLORIDE LEVEL 109 MEQ/L (98-107); CK-MB VALUE MASS < 1.0 NG/ML (<3.6); CPK CREATINE PHOSPHOKINASE 85 U/L (26-192); GLOMERULAR FILTRATION RATE > 60.0 (>58); GLUCOSE, FASTING 93 MG/DL (70-100); MB/CK RELATIVE INDEX 1.18 (< OR =4); POTASSIUM SERUM 3.9 MEQ/L (3.5-5.1); SODIUM LEVEL 142 MEQ/L (136-145); TROPONIN I < 0.02 NG/ML (< 0.10)
--- NOTE | 2019-05-07 09:13 | REP ---
CT of the brain without IV contrast: Comparison is 04/15/2017. There is no acute intracranial hemorrhage. There is no edema, mass effect or midline shift. Ventricles are normal size. The cortical stripe is unremarkable. The visualized paranasal sinuses and mastoid air cells are clear. Impression: Essentially negative CT study of the brain. There is no change from the prior study. Electronically Signed by Jhon Beckham MD 05/07/2019 09:04 A
--- NOTE | 2019-05-07 09:35 | REP ---
Portable chest x-ray: Single view. History: CVA. Comparison chest x-ray: April 15, 2021 18. Findings: EKG electrodes are seen. Lungs are well inflated and clear. There are surgical clips in the left axillary soft tissues as before. Pleural angles are sharp. Heart size is normal. Pulmonary vasculature is not increased. Impression: No acute disease. Electronically Signed by Guerrero Orellana MD 05/07/2019 09:26 A
[2019-05-07 09:36] LABS: INR 1.04; PROTHROMBIN TIME 13.4 SECONDS (11.8-14.0)
[2019-05-07 09:37] LABS: PARTIAL THROMBOPLASTIN TIME 27.2 SECONDS (25.0-38.4)
[2019-05-07] MEDS ORDERED: NS 1,000 ML IV ONE (11:00)
[2019-05-07] MEDS ORDERED: KETOROLAC 30 MG/ML VIAL (J1885) IV ONE (11:00)
[2019-05-07] MEDS ORDERED: ACETAMINOPHEN 500 MG TAB PO ONE (11:00)
[2019-05-07] MEDS ORDERED: METOCLOPRAMIDE INJ 10MG/2ML VIAL (J2765) IV ONE (11:00)
[2019-05-07] MEDS ORDERED: KETO10TAB PO (12:06)
[2019-05-07] MEDS ORDERED: REGL5TAB2 PO (12:06)
[2019-05-07 12:10] VITALS: BP 133/78
--- NOTE | 2019-05-07 19:10 | ECGEPIP ---
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
== END 2019-05-07 12:28 | disposition home or self-care (01) ==
LOC: M ED 08:10
DX: G43.909 Migraine, unspecified, not intractable, without status migrainosus (principal); I10 Essential (primary) hypertension; Z79.899 Other long term (current) drug therapy; Z85.3 Personal history of malignant neoplasm of breast
CPT/HCPCS: 70450; 71045; 80047; 80048; 82550; 82553; 84484; 84702; 85025; 85610; 85730; 86850; 86900; 86901; 93005; 93041; 94760; 96374; 96375; 99285; J1885; J2765

== ENCOUNTER → 2019-10-23 | Outpatient (CLI) | payer OTHER ==
[~2019-10-23] MED LIST changes: +KETO10TAB PO; +REGL5TAB2 PO
--- NOTE | 2019-10-23 12:11 | REP ---
WHOLE BODY RADIONUCLIDE BONE SCAN: HISTORY: Restaging exam breast carcinoma. Comparison study June 23, 2017. TECHNIQUE: 20.3 mCi technetium 99m MDP is injected and standard whole body bone scan imaging was acquired. SCINTIGRAPHIC FINDINGS: There is a normal distribution of skeletal tracer with uptake in bilateral kidneys and in the urinary bladder. There is no evidence to suggest skeletal metastatic disease. IMPRESSION: Negative radionuclide whole-body bone scan. No evidence of skeletal metastasis. Electronically Signed by Guerrero Orellana MD 10/23/2019 01:10 P
== END ==
LOC: M RAD 08:27
PROVIDERS: ATTEND Internal Medicine Hematology & Oncology
DX: R07.82 Intercostal pain (principal); Z85.3 Personal history of malignant neoplasm of breast
CPT/HCPCS: 78306; A9503

== ENCOUNTER → 2019-11-05 | Outpatient (CLI) | payer OTHER ==
[~2019-11-05] MED LIST changes: +GASTROGRAFIN SOLUTION 30ML (Q9963) As Ordered ONE; +ISOVUE-370 76% 100ML VIAL As Ordered ONE
--- NOTE | 2019-12-26 06:55 | REP ---
CT OF THE CHEST WITH INTRAVENOUS (IV) CONTRAST FOR RESTAGING OF LEFT BREAST CARCINOMA, STUDY DATE 11/05/2019 Delay in reporting results from hospital computer malfunction from malware / ransomware. COMPARISON: 07/07/2015 TECHNIQUE: Intravenous injection is into the right upper extremity. FINDINGS: The right subclavian vein appears occluded. There is collateral flow with venous channels in the right chest wall and right breast to intercostal veins and eventually the azygos vein and right atrium. There is no mediastinal or hilar lymph node enlargement. There is no lymph node enlargement or mass at the thoracic inlet. There are surgical clips in the left axilla. This is unchanged. There is no evidence of mass or adenopathy in the left axilla. There is no mass or adenopathy in the right axilla. There is no evidence of a breast mass on the right or the left by CT. There are no lung nodules or masses. There are no infiltrates or pleural effusions. The thoracic aorta is unremarkable. Cardiac size is normal. There is no pericardial effusion. There are no lytic, blastic, or destructive skeletal changes. In the upper abdomen, the visualized hepatic parenchyma is homogeneous. The visualized areas of the gallbladder, pancreas, and spleen are unremarkable. There is no adrenal nodule or mass. The visualized renal upper poles are unremarkable. There are no lytic, blastic, or destructive skeletal changes. IMPRESSION: No lung nodules or masses are identified. There is no mediastinal or hilar adenopathy or mass. No axillary adenopathy or mass. There are surgical clips in the left axilla, unchanged. No breast masses are identified by CT. No skeletal lesions are identified. 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 No soft tissue masses are identified at the thoracic inlet. MTDD
--- NOTE | 2019-12-26 06:56 | REP ---
CT ABDOMEN AND PELVIS WITH INTRAVENOUS (IV) AND BOWEL CONTRAST FOR RESTAGING OF LEFT BREAST CARCINOMA Delay in reporting results from hospital computer malfunction from malware / ransomware. COMPARISON: 06/23/2017 FINDINGS: The intravenous contrast demonstrates collateral flow along the right lateral chest and abdominal poon to intercostal veins and eventually to the azygos vein and right atrium. Please refer to the chest CT for further information. The hepatic parenchyma is homogeneous. The gallbladder, pancreas, and spleen are normal size and unremarkable. The adrenals, kidneys, and abdominal aorta are unremarkable. There is no periaortic adenopathy or mass. There is no mesenteric adenopathy or mass. There is no ascites. There is no bowel distention or obstruction. The bowel loops are otherwise unremarkable, except for scattered diverticula in the sigmoid colon without evidence of diverticulitis. PELVIS: The appendix is unremarkable. The uterus is unremarkable. There is a left adnexal 2.7 cm cyst. The right adnexa is unremarkable. There is no ascites. There are no lytic, blastic, or destructive skeletal changes. IMPRESSION: No evidence of adenopathy or mass. No ascites. No evidence of metastatic disease. There is a left adnexal cyst as described. There is collateral flow of the intravenous contrast along the right lateral chest and abdominal poon into the intercostal veins and eventually into the azygos vein and right atrium. On the chest CT performed this same date findings suggest possible right subclavian vein obstruction. MTDD
== END ==
LOC: M RAD 15:30
PROVIDERS: ATTEND Internal Medicine Hematology & Oncology
DX: R07.81 Pleurodynia (principal); Z85.3 Personal history of malignant neoplasm of breast
CPT/HCPCS: 71260; 74177; Q9963; Q9967

== ENCOUNTER → 2019-11-16 | Outpatient (REF) | payer OTHER ==
[~2019-11-16] MED LIST changes: -GASTROGRAFIN SOLUTION 30ML (Q9963) As Ordered ONE; -ISOVUE-370 76% 100ML VIAL As Ordered ONE
[2020-01-03 17:39] LABS: BASO % 0.7 % (0.0-1.0); EOS # 0.1 10^3/uL (0.0-0.5); EOS % 1.2 % (0.0-3.0); HEMATOCRIT 38.9 % (36.0-47.0); HEMOGLOBIN 12.3 g/dl (12.0-15.5); LYMPH # 1.5 10^3/uL (1.5-5.0); LYMPH % 24.5 % (24.0-44.0); MEAN CORPUSCULAR HEMOGLOBIN 29.6 pg (27.0-33.0); MEAN CORPUSCULAR HGB CONC 31.6 g/dl (32.0-36.5); MEAN CORPUSCULAR VOLUME 93.7 fl (80.0-96.0); MONO # 0.5 10^3/uL (0.0-0.8); MONO % 8.6 % (0.0-5.0); NEUTROPHILS # 3.8 10^3/uL (1.5-8.5); NEUTROPHILS % 64.8 % (36.0-66.0); PLATELET COUNT, AUTOMATED 299 10^3/uL (150-450); RED BLOOD COUNT 4.15 10^6/uL (4.00-5.40); WHITE BLOOD COUNT 5.9 10^3/uL (4.0-10.0)
[2020-01-09 18:35] LABS: ALBUMIN 3.4 GM/DL (3.2-5.2); ALT/SGPT 18 U/L (12-78); BILIRUBIN,TOTAL 1.3 MG/DL (0.2-1.0); BLOOD UREA NITROGEN 9 MG/DL (7-18); CALCIUM LEVEL 8.3 MG/DL (8.5-10.1); CARBON DIOXIDE LEVEL 26 MEQ/L (21-32); CHLORIDE LEVEL 111 MEQ/L (98-107); CREATININE FOR GFR 0.72 MG/DL (0.55-1.30); GLOMERULAR FILTRATION RATE > 60.0 (>58); GLUCOSE, FASTING 79 MG/DL (70-100); MAGNESIUM LEVEL 2.2 MG/DL (1.8-2.4); POTASSIUM SERUM 4.1 MEQ/L (3.5-5.1); SODIUM LEVEL 142 MEQ/L (136-145); TOTAL PROTEIN 6.6 GM/DL (6.4-8.2)
== END ==
LOC: M SFHCLERA 17:08
PROVIDERS: ATTEND Family Medicine
DX: R55 Syncope and collapse (principal)

== ENCOUNTER → 2019-11-23 | Outpatient (REF) | payer OTHER ==
[2019-11-23 19:17] LABS: FREE T4 1.09 NG/DL (0.76-1.46); THYROID STIMULATING HORMONE 0.743 uIU/ML (0.358-3.740)
== END ==
LOC: M SFHCLERA 17:33
PROVIDERS: ATTEND Family Medicine
DX: R53.83 Other fatigue (principal)

== ENCOUNTER → 2020-01-02 | Outpatient (REF) | payer OTHER | LOC: M SFHCLERA 08:55 | PROVIDERS: ATTEND Nurse Practitioner Family | DX: R35.0 Frequency of micturition (principal) | CPT/HCPCS: 81002; 87086; G0463 ==

== ENCOUNTER 2020-03-21 19:59 | Emergency (ER) | payer OTHER, SELFPAY ==
[~2020-03-21] VITALS: Ht 152.4 cm; Wt 85.0 kg
--- NOTE | 2020-03-21 20:36 | REP ---
INDICATION: CHEST PAIN COMPARISON: 05/07/2019 TECHNIQUE: Portable AP view of the chest FINDINGS: The mediastinum and cardiac silhouette are stable and within normal limits for portable technique. The lung dorsey are clear without acute consolidation, effusion, or pneumothorax. Skeletal structures are intact. IMPRESSION: No acute cardiopulmonary process appreciated. <Electronically signed by Alejo Puckett > 03/21/202032
[2020-03-21 20:39] LABS: BASO % 0.3 % (0.0-1.0); EOS % 0.5 % (0.0-3.0); HEMATOCRIT 38.3 % (36.0-47.0); HEMOGLOBIN 11.8 g/dl (12.0-15.5); LYMPH # 2.4 10^3/uL (1.5-5.0); LYMPH % 27.1 % (24.0-44.0); MEAN CORPUSCULAR HEMOGLOBIN 28.4 pg (27.0-33.0); MEAN CORPUSCULAR HGB CONC 30.8 g/dl (32.0-36.5); MEAN CORPUSCULAR VOLUME 92.1 fl (80.0-96.0); MONO # 0.8 10^3/uL (0.0-0.8); MONO % 9.4 % (0.0-5.0); NEUTROPHILS # 5.5 10^3/uL (1.5-8.5); NEUTROPHILS % 62.6 % (36.0-66.0); PLATELET COUNT, AUTOMATED 274 10^3/uL (150-450); RED BLOOD COUNT 4.16 10^6/uL (4.00-5.40); WHITE BLOOD COUNT 8.8 10^3/uL (4.0-10.0)
[2020-03-21] MEDS ORDERED: ASPIRIN 81 MG CHEW TABLET PO ONE (20:45)
[2020-03-21 21:30] LABS: RSV AMPLIFICATION NEGATIVE (NEGATIVE)
[2020-03-21 21:37] LABS: BLOOD UREA NITROGEN 10 MG/DL (7-18); CALCIUM LEVEL 9.4 MG/DL (8.5-10.1); CARBON DIOXIDE LEVEL 26 mmol/L (20-29); CHLORIDE LEVEL 110 MEQ/L (98-107); CREATININE FOR GFR 0.82 MG/DL (0.55-1.30); GLOMERULAR FILTRATION RATE > 60.0 (>58); GLUCOSE, FASTING 93 MG/DL (70-100); POTASSIUM SERUM 3.7 MEQ/L (3.5-5.1); SODIUM LEVEL 143 MEQ/L (136-145)
[2020-03-21 21:38] LABS: CK-MB VALUE MASS 1.1 NG/ML (<3.6); CPK CREATINE PHOSPHOKINASE 101 U/L (26-192); MB/CK RELATIVE INDEX 1.08 (< OR =4); TROPONIN I < 0.02 NG/ML (< 0.10)
[2020-03-21 22:45] VITALS: BP 134/77
--- NOTE | 2020-03-23 12:18 | ECGEPIP ---
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
== END 2020-03-21 23:00 | disposition home or self-care (01) ==
LOC: M ED 19:59
DX: R51.9 Headache, unspecified (principal); R07.9 Chest pain, unspecified; I10 Essential (primary) hypertension

== ENCOUNTER → 2020-03-22 | Outpatient (CLI) | payer SELFPAY | LOC: M LABSMTC 11:29 | PROVIDERS: ATTEND Pediatrics | DX: Z20.828 Contact with and (suspected) exposure to other viral communicable diseases (principal) ==

== ENCOUNTER → 2020-05-27 | Outpatient (CLI) | payer OTHER ==
--- NOTE | 2020-05-27 14:44 | REP ---
INDICATION: RT AXILLARY LUMP. COMPARISON: 11/24/2018. TECHNIQUE: Real-time sonographic evaluation of right axilla performed. FINDINGS: Two lymph nodes are identified. They both demonstrate an echogenic fatty hilum. One measures 1.4 x 1.1 x 0.6 cm with a slightly prominent cortical thickness of 4 mm. The other measures 3.2 x 1.2 x 0.8 cm. There is mild cortical thickening of 5 mm. IMPRESSION: Two lymph nodes identified with echogenic fatty christine. Both demonstrate very mild cortical thickening. This is a nonspecific finding. Recommend follow-up ultrasound in 6 months. If the lymph nodes are felt to be clinically suspicious, ultrasound-guided biopsy could be performed. <Electronically signed by Jhon Thomas > 05/27/20 [id number]
--- NOTE | 2020-05-28 09:07 | MEDONCTEEN ---
Date/Time of Encounter Date of Encounter: May 28, 2020 Time of Encounter: 09:06 Telephone Encounter Right axillary ultrasound showed nonspecific lymph nodes. Results discussed with the patient over the phone. I recommended a referral to Dr. Pacheco. She has agreed to this. LAURA REA MD May 28, 2020 09:07
== END ==
LOC: M RAD 10:26
PROVIDERS: ATTEND Internal Medicine Medical Oncology
DX: R59.9 Enlarged lymph nodes, unspecified (principal); Z85.3 Personal history of malignant neoplasm of breast

== ENCOUNTER → 2020-06-09 | Outpatient (REF) | payer OTHER | LOC: M SFHCLERA 14:19 | PROVIDERS: ATTEND Nurse Practitioner Family | DX: R10.9 Unspecified abdominal pain (principal) ==

== ENCOUNTER → 2020-06-20 | Outpatient (CLI) | payer OTHER ==
--- NOTE | 2020-06-20 09:01 | REP ---
INDICATION: PAIN RT SIDE/ PT HAS LABS FIRST. COMPARISON: Right upper quadrant abdominal ultrasound dated 02/26/2019. TECHNIQUE: Multiple sonographic images of the abdominal right upper quadrant. FINDINGS: The gallbladder is partially contracted in spite of the patient stating she has been NPO. There is no cholelithiasis, gallbladder wall thickening or pericholecystic fluid. There is no intrahepatic or extrahepatic biliary duct dilatation. The common biliary duct measures 3.6 mm in diameter. The hepatic parenchyma is homogeneous. There are no hepatic masses or cysts. The hepatic parenchyma is otherwise unremarkable. The pancreas is unremarkable. The right kidney measures 9.9 x 5.3 x 4.7 cm and is normal size. There is no right renal calculus, hydronephrosis, solid mass or cystic mass. There is no right upper quadrant abdominal free fluid. IMPRESSION: Essentially negative abdominal right upper quadrant ultrasound. <Electronically signed by Jhon Beckham > 06/20/20 0857
[2020-06-20 09:06] LABS: BASO % 0.4 % (0.0-1.0); EOS # 0.1 10^3/uL (0.0-0.5); EOS % 1.1 % (0.0-3.0); HEMATOCRIT 41.8 % (36.0-47.0); HEMOGLOBIN 13.2 g/dl (12.0-15.5); LYMPH # 1.7 10^3/uL (1.5-5.0); LYMPH % 22.6 % (24.0-44.0); MEAN CORPUSCULAR HEMOGLOBIN 29.5 pg (27.0-33.0); MEAN CORPUSCULAR HGB CONC 31.6 g/dl (32.0-36.5); MEAN CORPUSCULAR VOLUME 93.5 fl (80.0-96.0); MONO # 0.5 10^3/uL (0.0-0.8); NEUTROPHILS # 5.1 10^3/uL (1.5-8.5); NEUTROPHILS % 68.6 % (36.0-66.0); PLATELET COUNT, AUTOMATED 303 10^3/uL (150-450); RED BLOOD COUNT 4.47 10^6/uL (4.00-5.40); WHITE BLOOD COUNT 7.4 10^3/uL (4.0-10.0)
[2020-06-20 09:30] LABS: ALBUMIN 3.5 GM/DL (3.2-5.2); ALT/SGPT 18 U/L (12-78); AMYLASE 49 U/L (25-115); BLOOD UREA NITROGEN 8 MG/DL (7-18); CALCIUM LEVEL 8.7 MG/DL (8.5-10.1); CARBON DIOXIDE LEVEL 27 MEQ/L (21-32); CHLORIDE LEVEL 110 MEQ/L (98-107); CREATININE FOR GFR 0.61 MG/DL (0.55-1.30); GLOMERULAR FILTRATION RATE > 60.0 (>58); GLUCOSE, FASTING 92 MG/DL (70-100); POTASSIUM SERUM 4.5 MEQ/L (3.5-5.1); SODIUM LEVEL 141 MEQ/L (136-145); TOTAL PROTEIN 6.8 GM/DL (6.4-8.2)
[2020-06-20 09:31] LABS: LIPASE 35 U/L (73-393)
== END ==
LOC: M RAD 08:16
PROVIDERS: ATTEND Nurse Practitioner Family
DX: R10.9 Unspecified abdominal pain (principal)

== ENCOUNTER → 2020-06-23 | Outpatient (CLI) | payer OTHER | LOC: M PLALAB 11:23 | PROVIDERS: ATTEND Surgery | DX: Z13.79 Encounter for other screening for genetic and chromosomal anomalies (principal) ==

== ENCOUNTER → 2020-06-27 | Outpatient (CLI) | payer OTHER ==
[~2020-06-27] MED LIST changes: +PROHANCE 279.3MG/ML 15ML VIAL As Ordered ONE
--- NOTE | 2020-06-27 19:10 | REP ---
INDICATION: UNSPECIFIED LUMP IN AXILLARY TAIL OF THE RIGHT BREAST. History left breast carcinoma stage III. Lumpectomy radiation therapy and chemotherapy. COMPARISON: Comparison MRI study is from January 26, 2019 as well as December 15, 2017.. Comparison is made with recent right axillary sonography. Comparison chest CT November 05, 2019 is also reviewed. TECHNIQUE: Three [facility] MRI imaging was performed with a dedicated breast coil. Axial, coronal, and sagittal T1 and T2 weighted scans were obtained with and without fat saturation in the usual fashion. The study includes dynamically acquired post gadolinium-enhanced imaging with image subtraction. Maximum intensity projection and multi planar reformation imaging is included as well. This study is interpreted with the aid of [employer], an FDA approved computer aided detection (CAD) software program, on a dedicated breast MRI workstation. The gadolinium enhancement dose is 15 mL of intravenous ProHance. FINDINGS: There is a moderate amount of fibroglandular tissue bilaterally corresponding with the mammographic pattern. There is minimal background parenchymal enhancement. There is no evidence of significant breast cystic change. High-resolution pre and post-contrast T1 and T2 weighted scans show no suspicious morphologic abnormality in either breast. Dynamically acquired sequential postcontrast images show no suspicious area of enhancement and washout kinetics in either breast to suggest malignancy. Subtraction images show no additional abnormality. There are several lymph nodes in the right axilla the 2 largest of which measure 1.5 x 0.9 and 3.1 x 1.0 cm in greatest diameter on transverse images. On the December 15, 2017 prior study, these lymph nodes are visible. There dimensions were 1.2 x 1.0 cm and 2.8 x 1.0 cm respectively. There is a lymph node in the axillary tail on the right on today's study which measures 10 x 6 mm, previously 8 x 6 mm. These lymph nodes do not appear to have changed substantially since the December 15, 2017 prior study. This suggests a benign etiology for there mild cortical hypertrophy. There is no evidence of internal mammary adenopathy. There are prominent draining veins located peripherally in both breasts and in the right axillary soft tissues and along the right chest wall. The internal mammary veins are somewhat dilated bilaterally, right more so than left. 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 IMPRESSION: BI-RADS category 2 benign bilateral breast MRI findings. Post treatment changes on the left. Stable right axillary lymph nodes. There are prominent draining veins bilaterally related to superior vena cava obstruction with well established collateral veins. <Electronically signed by Federico Orellana > 06/27/20 0647
== END ==
LOC: M RAD 14:38
PROVIDERS: ATTEND Surgery
DX: N63.31 Unspecified lump in axillary tail of the right breast (principal)
CPT/HCPCS: A9576; C8908

== ENCOUNTER → 2020-07-09 | Outpatient (CLI) | payer OTHER ==
[~2020-07-09] MED LIST changes: -PROHANCE 279.3MG/ML 15ML VIAL As Ordered ONE
[2020-07-09 10:44] VITALS: BP 134/84
--- NOTE | 2020-07-09 13:08 | REP ---
INDICATION: E95.0 ENLARGED RT AXILLA LYMPH NODES X 2,US GUIDED BIOPSY. COMPARISON: 05/27/2020. TECHNIQUE: Real-time sonographic evaluation of right axilla performed. FINDINGS: Ultrasound guidance was provided for Dr. Pacheco O performed ultrasound-guided biopsy of 2 right axillary lymph nodes, which were seen on the prior ultrasound. IMPRESSION: Ultrasound guidance provided for Dr. Pacheco for ultrasound-guided biopsy of 2 right axillary lymph nodes. RECOMMENDATION: Clinical follow-up. <Electronically signed by Jhon Thomas > 07/09/20 1471
--- NOTE | 2020-07-09 17:12 | ROOPDOC ---
[facility] Report Of Operation Report of Operation DATE OF PROCEDURE: 07/09/20 DIAGNOSIS: Right abnormal axillary lymph node PROCEDURE: Ultrasound guided Right abnormal axillary lymph node biopsy with clip placement SURGEON: Venus Rider BLOOD LOSS: minimal COMPLICATIONS: none Lidocaine 1% LOT [id number] Expiration 03/2021 Sodium Bicarbonate 8.4% LOT [id number] Expiration 05/2021 LARGER LOWER LYMPH NODE Hydromark clip LOT [id number] Expiration 02/2023 SHAPE 3 Bx device: TEMNO 18G x 20 cm LOT I Expiration 05/2023 SMALLER UPPER LYMPH NODE Hydromark clip LOT [id number] Expiration 11/2022 SHAPE 4 Bx device: TEMNO 18G x 20 cm LOT I Expiration 05/2023 Informed consent was obtained. The most common risk and possible complications including bleeding, hematoma, bruising, infection, injury to surrounding structures were explained to the patient and the patient expressed understanding. Patient was placed on the bed in the supine position. Appropriate time out was done stating patients name, date of , and the procedure to be performed. The right axilla was prepped and draped in the usual fashion. The ultrasound was used to confirm the location of enlarged lymph nodes with cortex measuring 4.2 m m (lower LN) and 3.8 mm (upper). Procedure was started with biopsy of the larger lower axillary lymph node. Plain Lidocaine 1% and 8.4% sodium bicarbonate 10:1 mix was used to anesthetize the skin, the biopsy site and tissues along the anticipated biopsy tract. Small skin incision was made with blade number 11. Temno 18G cannula with introducer was inserted through the incision and advanced under the ultrasound guidance to position immediately adjacent to the enlarged lymph node with 4.2 mm cortex. Next, the introducer was removed and Temno 18G biopsy device was places in the cannula. Pre-biopsy imaging, and post-biopsy imaging were captured. Five good core biopsies were taken at various levels of the lesion. Specimen was placed in formaldehyde, labeled with appropriate biopsy site and patients name, and sent to pathology for evaluation. Next, the biopsy device and cannula were withdrawn and a clip introducer was inserted into the position immediately adjacent to the biopsied lymph node. The SHAPE 3 Hydromark clip was deployed under sonographic guidance. Post-clip placement image was captured. Manual pressure over the biopsy cavity and tract was held after the clip introducer was withdrawn. No bleeding was noted upon removal of the pressure. Next our attention was turned toward the upper medial axillary lymph node. Plain Lidocaine 1% and 8.4% sodium bicarbonate 10:1 mix was used to anesthetize the skin, the biopsy site and tissues along the anticipated biopsy tract. Small skin incision was made with blade number 11. A new Temno 18G cannula with introducer was inserted through the incision and advanced under the ultrasound guidance to position immediately adjacent to the enlarged lymph node with 3.8 mm cortex. Next, the introducer was removed and Temno 18G biopsy device was places in the cannula. Pre-biopsy imaging, and post- biopsy imaging were captured. Five good core biopsies were taken at various levels of the lesion. Specimen was placed in formaldehyde, labeled with appropriate biopsy site and patients name, and sent to pathology for evaluation. Next, the biopsy device and cannula were withdrawn and a clip introducer was inserted into the position immediately adjacent to the biopsied lymph node. The SHAPE 4 Hydromark clip was deployed under sonographic guidance. Post-clip placement image was captured. Manual pressure over the biopsy cavity and tract was held after the clip introducer was withdrawn. No bleeding was noted upon removal of the pressure. Postprocedural dressing was placed. Patient tolerated procedure well. Discharge instructions were discussed with the patient and the patient expressed understanding. VENUS RIDER DO Jul 09, 2020 17:12
== END ==
LOC: M WHCPRO 06:32
PROVIDERS: ATTEND Surgery
DX: R59.0 Localized enlarged lymph nodes (principal)

== ENCOUNTER → 2020-10-08 | Outpatient (REF) | payer OTHER | LOC: M SFHCLERA 14:32 | PROVIDERS: ATTEND Nurse Practitioner Family | DX: R07.89 Other chest pain (principal) ==

== ENCOUNTER → 2020-10-08 | Outpatient (CLI) | payer OTHER ==
[2020-10-08 15:55] LABS: HEMATOCRIT 40.3 % (36.0-47.0); HEMOGLOBIN 12.7 g/dl (12.0-15.5); MEAN CORPUSCULAR HEMOGLOBIN 29.3 pg (27.0-33.0); MEAN CORPUSCULAR HGB CONC 31.5 g/dl (32.0-36.5); MEAN CORPUSCULAR VOLUME 92.9 fl (80.0-96.0); PLATELET COUNT, AUTOMATED 283 10^3/uL (150-450); RED BLOOD COUNT 4.34 10^6/uL (4.00-5.40)
[2020-10-08 16:34] LABS: ALBUMIN 3.3 GM/DL (3.2-5.2); ALT/SGPT 19 U/L (12-78); BILIRUBIN,TOTAL 1.1 MG/DL (0.2-1.0); BLOOD UREA NITROGEN 8 MG/DL (7-18); CALCIUM LEVEL 9.1 MG/DL (8.5-10.1); CARBON DIOXIDE LEVEL 26 MEQ/L (21-32); CHLORIDE LEVEL 109 MEQ/L (98-107); CREATININE FOR GFR 0.71 MG/DL (0.55-1.30); GLOMERULAR FILTRATION RATE > 60.0 (>58); GLUCOSE, FASTING 88 MG/DL (70-100); POTASSIUM SERUM 4.3 MEQ/L (3.5-5.1); SODIUM LEVEL 143 MEQ/L (136-145); TOTAL PROTEIN 6.8 GM/DL (6.4-8.2)
== END ==
LOC: M LAB 15:15
PROVIDERS: ATTEND Nurse Practitioner Family
DX: R07.89 Other chest pain (principal)

== ENCOUNTER → 2020-12-23 | Outpatient (REF) | payer OTHER | LOC: M SFHCLERA 16:00 | PROVIDERS: ATTEND Family Medicine | DX: R51.9 Headache, unspecified (principal); R05 Cough ==

== ENCOUNTER → 2021-01-02 | Outpatient (CLI) | payer OTHER ==
--- NOTE | 2021-01-02 09:20 | REP ---
INDICATION: HX LEFT BREAST CA. COMPARISON: Multiple the latest 05/16/2017 TECHNIQUE: Digital screening mammography was carried out bilaterally in the CC and MLO projections using both 2D and 3D modalities and compared to the prior exams. By history, the patient has no complaints of a palpable breast abnormality or other significant breast complaints. The patient is status post left breast lumpectomy and chemo radiation therapy due to breast cancer 6 years ago. FINDINGS: The breasts are unchanged in size and shape. Once again, dense heterogenous fibroglandular elements are seen bilaterally to such a degree that the sensitivity of the mammogram in detecting cancers decreased. There is stable postprocedural internal architectural distortion in the left breast. There is stable left breast post radiation skin thickening. No samara soft tissue densities are samara areas of spiculation or internal architectural distortion are seen in either breast. There is no right breast skin thickening. Stable benign calcifications are again identified. The Volpara volumetric breast density pattern is C. IMPRESSION: BIRADS/ACR category 2 benign findings. There is no evidence of malignant alteration of the breasts. This patient's [facility] lifetime breast cancer risk assessment cannot be determined due to previous history of breast cancer. This mammogram was interpreted with the aid of an FDA-approved computer-aided detection system. The patient states she had a clinical breast exam in July 2020. The patient letter being requested is M1. RECOMMENDATION: Repeat screening mammography recommended 1 year (for women over 40). <Electronically signed by Loco Santoyo > 01/02/21 0905
--- NOTE | 2021-01-02 09:33 | REP ---
INDICATION: HX LEFT BREAST CA, LUMP OF RIGHT AXIALLY TAIL. COMPARISON: Multiple TECHNIQUE: Real-time sonographic evaluation of benign lymph nodes in the right axilla. FINDINGS: The lymph nodes are unchanged. IMPRESSION: No change in the biopsy-proven benign lymph nodes. ACR category 2 <Electronically signed by Loco Santoyo > 01/02/21 [id number]
== END ==
LOC: M WHC 08:12
PROVIDERS: ATTEND Surgery
DX: N63.31 Unspecified lump in axillary tail of the right breast (principal); Z85.3 Personal history of malignant neoplasm of breast
CPT/HCPCS: 76882; 77066; G0279

== ENCOUNTER → 2021-07-04 | Outpatient (CLI) | payer OTHER ==
[~2021-07-04] MED LIST changes: -CEFD1CAP8; +CEFD300C41
[2021-07-04 09:58] LABS: BASO # 0.1 10^3/uL (0.0-0.2); BASO % 0.7 % (0.0-1.0); EOS # 0.1 10^3/uL (0.0-0.5); EOS % 2.1 % (0.0-3.0); HEMATOCRIT 40.8 % (36.0-47.0); HEMOGLOBIN 13.1 g/dl (12.0-15.5); LYMPH % 29.5 % (24.0-44.0); MEAN CORPUSCULAR HEMOGLOBIN 29.7 pg (27.0-33.0); MEAN CORPUSCULAR HGB CONC 32.1 g/dl (32.0-36.5); MEAN CORPUSCULAR VOLUME 92.5 fl (80.0-96.0); MONO # 0.5 10^3/uL (0.0-0.8); MONO % 7.1 % (2.0-8.0); NEUTROPHILS # 4.1 10^3/uL (1.5-8.5); NEUTROPHILS % 60.3 % (36.0-66.0); PLATELET COUNT, AUTOMATED 310 10^3/uL (150-450); RED BLOOD COUNT 4.41 10^6/uL (4.00-5.40); WHITE BLOOD COUNT 6.7 10^3/uL (4.0-10.0)
[2021-07-04 10:17] LABS: BLOOD UREA NITROGEN 9 MG/DL (7-18); CALCIUM LEVEL 8.7 MG/DL (8.5-10.1); CARBON DIOXIDE LEVEL 27 MEQ/L (21-32); CHLORIDE LEVEL 110 MEQ/L (98-107); CREATININE FOR GFR 0.69 MG/DL (0.55-1.30); GLOMERULAR FILTRATION RATE > 60.0 (>58); GLUCOSE, FASTING 86 MG/DL (70-100); POTASSIUM SERUM 4.3 MEQ/L (3.5-5.1); SODIUM LEVEL 142 MEQ/L (136-145)
== END ==
LOC: M LAB 08:48
PROVIDERS: ATTEND Student in an Organized Health Care Education/Training Program
DX: R11.2 Nausea with vomiting, unspecified (principal); R10.13 Epigastric pain

== ENCOUNTER 2021-07-29 14:45 | Emergency (ER) | payer OTHER ==
[~2021-07-29] VITALS: Ht 152.4 cm; Wt 85.9 kg
[2021-07-29 17:07] VITALS: BP 121/67
== END 2021-07-29 18:23 | disposition left against medical advice (07) ==
LOC: EDSEX 14:45 → M ED 14:45 → EDBD 14:45 → M ED 18:23
DX: Z53.21 Procedure and treatment not carried out due to patient leaving prior to being seen by health care provider (principal)

== ENCOUNTER → 2021-07-30 | Outpatient (CLI) | payer OTHER ==
[2021-07-30 13:24] LABS: BASO # 0.1 10^3/uL (0.0-0.2); BASO % 0.7 % (0.0-1.0); EOS # 0.1 10^3/uL (0.0-0.5); EOS % 0.7 % (0.0-3.0); HEMATOCRIT 39.9 % (36.0-47.0); HEMOGLOBIN 13.2 g/dl (12.0-15.5); LYMPH # 2.4 10^3/uL (1.5-5.0); MEAN CORPUSCULAR HEMOGLOBIN 30.7 pg (27.0-33.0); MEAN CORPUSCULAR HGB CONC 33.1 g/dl (32.0-36.5); MEAN CORPUSCULAR VOLUME 92.8 fl (80.0-96.0); MONO # 0.5 10^3/uL (0.0-0.8); MONO % 6.6 % (2.0-8.0); NEUTROPHILS # 4.7 10^3/uL (1.5-8.5); NEUTROPHILS % 60.7 % (36.0-66.0); PLATELET COUNT, AUTOMATED 325 10^3/uL (150-450); WHITE BLOOD COUNT 7.7 10^3/uL (4.0-10.0)
[2021-07-30 13:57] LABS: ALT/SGPT 19 U/L (12-78); BLOOD UREA NITROGEN 6 MG/DL (7-18); CALCIUM LEVEL 9.4 MG/DL (8.5-10.1); CARBON DIOXIDE LEVEL 25 MEQ/L (21-32); CHLORIDE LEVEL 111 MEQ/L (98-107); CREATININE FOR GFR 0.57 MG/DL (0.55-1.30); GLOMERULAR FILTRATION RATE > 60.0 (>58); GLUCOSE, FASTING 80 MG/DL (70-100); POTASSIUM SERUM 3.7 MEQ/L (3.5-5.1); SODIUM LEVEL 142 MEQ/L (136-145)
[2021-07-30 13:58] LABS: ALBUMIN 3.7 GM/DL (3.2-5.2); BILIRUBIN,TOTAL 1.3 MG/DL (0.2-1.0); THYROID STIMULATING HORMONE 0.953 uIU/ML (0.358-3.740); TOTAL PROTEIN 7.3 GM/DL (6.4-8.2)
== END ==
LOC: M RAD 12:04
PROVIDERS: ATTEND Family Medicine
DX: R55 Syncope and collapse (principal)

== ENCOUNTER → 2021-07-31 | Outpatient (CLI) | payer OTHER | LOC: M CARPUL 09:18 | PROVIDERS: ATTEND Family Medicine | DX: R55 Syncope and collapse (principal) ==

== ENCOUNTER → 2021-10-09 | Outpatient (CLI) | payer OTHER | LOC: M WHC 07:15 | PROVIDERS: ATTEND Surgery | DX: Z85.3 Personal history of malignant neoplasm of breast (principal); N64.4 Mastodynia | CPT/HCPCS: 77065; G0279 ==

== ENCOUNTER 2021-11-19 11:05 | Emergency (ER) | payer OTHER ==
[~2021-11-19] VITALS: Ht 152.4 cm; Wt 86.7 kg
[2021-11-19 11:05] VITALS: BP 136/89
== END 2021-11-19 14:04 | disposition left against medical advice (07) ==
LOC: M ED 11:05
DX: Z53.9 Procedure and treatment not carried out, unspecified reason (principal)

== ENCOUNTER 2022-01-15 09:04 | Emergency (ER) | payer OTHER ==
[~2022-01-15] VITALS: Ht 149.9 cm; Wt 85.0 kg
[2022-01-15 10:20] LABS: BASO # 0.1 10^3/uL (0.0-0.2); BASO % 0.7 % (0.0-1.0); EOS # 0.1 10^3/uL (0.0-0.5); EOS % 0.9 % (0.0-3.0); HEMATOCRIT 39.4 % (36.0-47.0); HEMOGLOBIN 12.8 g/dl (12.0-15.5); LYMPH # 1.9 10^3/uL (1.5-5.0); LYMPH % 28.6 % (24.0-44.0); MEAN CORPUSCULAR HGB CONC 32.5 g/dl (32.0-36.5); MEAN CORPUSCULAR VOLUME 92.5 fl (80.0-96.0); MONO # 0.6 10^3/uL (0.0-0.8); MONO % 8.1 % (2.0-8.0); NEUTROPHILS # 4.2 10^3/uL (1.5-8.5); NEUTROPHILS % 61.6 % (36.0-66.0); PLATELET COUNT, AUTOMATED 295 10^3/uL (150-450); RED BLOOD COUNT 4.26 10^6/uL (4.00-5.40); WHITE BLOOD COUNT 6.8 10^3/uL (4.0-10.0)
[2022-01-15 10:51] LABS: CPK CREATINE PHOSPHOKINASE 72 U/L (26-192)
[2022-01-15 10:57] LABS: ALBUMIN 3.4 GM/DL (3.2-5.2); ALT/SGPT 16 U/L (12-78); BILIRUBIN,TOTAL 1.4 MG/DL (0.2-1.0); BLOOD UREA NITROGEN 8 MG/DL (7-18); CARBON DIOXIDE LEVEL 25 MEQ/L (21-32); CHLORIDE LEVEL 112 MEQ/L (98-107); CREATININE FOR GFR 0.74 MG/DL (0.55-1.30); GLOMERULAR FILTRATION RATE > 60.0 (>58); GLUCOSE, FASTING 94 MG/DL (70-100); POTASSIUM SERUM 4.7 MEQ/L (3.5-5.1); SODIUM LEVEL 140 MEQ/L (136-145); TOTAL PROTEIN 6.8 GM/DL (6.4-8.2)
[2022-01-15 10:58] LABS: FREE T4 1.09 NG/DL (0.76-1.46); THYROID STIMULATING HORMONE 0.909 uIU/ML (0.358-3.740)
[2022-01-15 12:36] VITALS: BP 144/98
[2022-01-15] MEDS ORDERED: MECL1TAB31 PO (12:51)
== END 2022-01-15 13:10 | disposition home or self-care (01) ==
LOC: M ED 09:04
DX: H81.10 Benign paroxysmal vertigo, unspecified ear (principal); R51.9 Headache, unspecified; I10 Essential (primary) hypertension; E03.9 Hypothyroidism, unspecified; Z79.899 Other long term (current) drug therapy

== ENCOUNTER → 2022-04-19 | Outpatient (CLI) | payer OTHER ==
[~2022-04-19] MED LIST changes: +MECL1TAB31 PO
[2022-04-19 11:44] LABS: BASO % 0.4 % (0.0-1.0); EOS # 0.1 10^3/uL (0.0-0.5); EOS % 1.2 % (0.0-3.0); HEMOGLOBIN 13.9 g/dl (12.0-15.5); LYMPH # 2.2 10^3/uL (1.5-5.0); LYMPH % 31.9 % (24.0-44.0); MEAN CORPUSCULAR HEMOGLOBIN 29.6 pg (27.0-33.0); MEAN CORPUSCULAR HGB CONC 31.6 g/dl (32.0-36.5); MEAN CORPUSCULAR VOLUME 93.6 fl (80.0-96.0); MONO # 0.5 10^3/uL (0.0-0.8); MONO % 7.9 % (2.0-8.0); NEUTROPHILS % 58.3 % (36.0-66.0); PLATELET COUNT, AUTOMATED 320 10^3/uL (150-450); WHITE BLOOD COUNT 6.8 10^3/uL (4.0-10.0)
[2022-04-19 12:13] LABS: ALBUMIN 3.5 G/DL (3.2-5.2); ALKALINE PHOSPHATASE 99 U/L (46-116); ALT/SGPT 14 U/L (7.0-40); AST/SGOT 15 U/L (<34); BILIRUBIN,TOTAL 1.3 MG/DL (0.3-1.2); BLOOD UREA NITROGEN 15 MG/DL (9-23); CALCIUM LEVEL 8.8 MG/DL (8.5-10.1); CARBON DIOXIDE LEVEL 29 MMOL/L (20-31); CHLORIDE LEVEL 104 MMOL/L (98-107); CHOLESTEROL LEVEL 128 MG/DL (<200); CHOLESTEROL RISK RATIO 2.55 (<5); CREATININE FOR GFR 0.87 MG/DL (0.55-1.30); GLOMERULAR FILTRATION RATE > 60.0 (>58); GLUCOSE, FASTING 82 MG/DL (60-100); HDL CHOLESTEROL 50.1 MG/DL (>40); LDL CHOLESTEROL 64.9 MG/DL (<100); NON-HDL-C 78 MG/DL; POTASSIUM SERUM 4.1 MMOL/L (3.5-5.1); SODIUM LEVEL 141 MMOL/L (136-145); TOTAL PROTEIN 6.8 G/DL (5.7-8.2); TRIGLYCERIDES LEVEL 65 MG/DL (<150)
[2022-04-19 12:15] LABS: THYROID STIMULATING HORMONE 1.175 uIU/ML (0.55-4.78)
== END ==
LOC: M LAB 10:21
PROVIDERS: ATTEND Student in an Organized Health Care Education/Training Program
DX: A04.8 Other specified bacterial intestinal infections (principal)

== ENCOUNTER → 2022-04-27 | Outpatient (CLI) | payer OTHER | LOC: M RAD 08:18 | PROVIDERS: ATTEND Student in an Organized Health Care Education/Training Program | DX: R10.11 Right upper quadrant pain (principal) ==

== ENCOUNTER 2022-08-09 13:37 | Day surgery (SDC) | payer OTHER ==
[~2022-08-09] VITALS: Ht 149.9 cm; Wt 76.7 kg
[~2022-08-09 13:37] MED LIST changes: +AMLO1TAB24; +HYDR-3490; +NS 1,000 ML IV ONE
[2022-08-09 16:05] VITALS: BP 164/90
== END 2022-08-09 16:13 | disposition home or self-care (01) ==
LOC: M OPP 13:37
PROVIDERS: ATTEND Internal Medicine Gastroenterology
DX: K29.50 Unspecified chronic gastritis without bleeding (principal); K52.89 Other specified noninfective gastroenteritis and colitis; R14.0 Abdominal distension (gaseous); R11.0 Nausea

== ENCOUNTER → 2022-09-06 | Outpatient (CLI) | payer OTHER ==
[~2022-09-06] MED LIST changes: -NS 1,000 ML IV ONE
== END ==
LOC: M RAD 06:56
PROVIDERS: ATTEND Internal Medicine Gastroenterology
DX: K82.8 Other specified diseases of gallbladder (principal)
CPT/HCPCS: 78227; A9537

== ENCOUNTER 2022-09-28 06:22 | Emergency (ER) | payer OTHER ==
[~2022-09-28] VITALS: Ht 149.9 cm; Wt 78.9 kg
[2022-09-28] MEDS ORDERED: NS 1,000 ML IV ONE (07:35)
[2022-09-28] MEDS ORDERED: KETOROLAC 30 MG/ML 1ML VIAL IV ONE (07:35)
[2022-09-28] MEDS ORDERED: METOCLOPRAMIDE INJ 10MG/2ML VIAL IV ONE (07:35)
[2022-09-28] MEDS ORDERED: diphenhydrAMINE 50MG/ML VIAL IV ONE (07:35)
[2022-09-28] MEDS ORDERED: ACETAMINOPHEN 500 MG TAB PO ONE (07:35)
[2022-09-28 07:52] LABS: BASO % 0.4 % (0.0-1.0); EOS # 0.1 10^3/uL (0.0-0.5); EOS % 0.8 % (0.0-3.0); HEMATOCRIT 39.8 % (36.0-47.0); HEMOGLOBIN 12.7 g/dl (12.0-15.5); LYMPH # 1.7 10^3/uL (1.5-5.0); LYMPH % 24.2 % (24.0-44.0); MEAN CORPUSCULAR HEMOGLOBIN 30.5 pg (27.0-33.0); MEAN CORPUSCULAR HGB CONC 31.9 g/dl (32.0-36.5); MEAN CORPUSCULAR VOLUME 95.4 fl (80.0-96.0); MONO # 0.5 10^3/uL (0.0-0.8); MONO % 7.1 % (2.0-8.0); NEUTROPHILS # 4.8 10^3/uL (1.5-8.5); NEUTROPHILS % 67.2 % (36.0-66.0); PLATELET COUNT, AUTOMATED 286 10^3/uL (150-450); RED BLOOD COUNT 4.17 10^6/uL (4.00-5.40); WHITE BLOOD COUNT 7.2 10^3/uL (4.0-10.0)
[2022-09-28 08:02] LABS: INR 0.97; PROTHROMBIN TIME 13.1 SECONDS (12.5-14.5)
[2022-09-28 08:03] LABS: PARTIAL THROMBOPLASTIN TIME 24.6 SECONDS (24.8-34.2)
[2022-09-28 08:15] LABS: BLOOD UREA NITROGEN 8 MG/DL (9-23); CALCIUM LEVEL 8.6 MG/DL (8.5-10.1); CARBON DIOXIDE LEVEL 26 MMOL/L (20-31); CHLORIDE LEVEL 108 MMOL/L (98-107); CREATININE FOR GFR 0.67 MG/DL (0.55-1.30); GLOMERULAR FILTRATION RATE > 60.0 (>58); GLUCOSE, FASTING 95 MG/DL (60-100); POTASSIUM SERUM 4.7 MMOL/L (3.5-5.1); SODIUM LEVEL 139 MMOL/L (136-145)
[2022-09-28] MEDS ORDERED: MIDAZOLAM INJ 2MG/2ML VIAL IV STA (08:33)
[2022-09-28 11:43] VITALS: BP 110/72; TEMP 97; O2SAT 100
== END 2022-09-28 12:07 | disposition home or self-care (01) ==
LOC: M ED 06:22
DX: R51.9 Headache, unspecified (principal); R20.2 Paresthesia of skin; I10 Essential (primary) hypertension; Z79.899 Other long term (current) drug therapy
CPT/HCPCS: 70450; 70544; 70551; 80048; 85025; 85610; 85730; 93005; 93041; 94760; 96374; 96375; 99285; J1200; J1885; J2250; J2765

== ENCOUNTER → 2022-11-26 | Outpatient (CLI) | payer OTHER | LOC: M RAD 09:06 | PROVIDERS: ATTEND Internal Medicine Medical Oncology | DX: Z86.79 Personal history of other diseases of the circulatory system (principal) ==

== ENCOUNTER → 2023-01-18 | Outpatient (CLI) | payer OTHER ==
[~2023-01-18] MED LIST changes: -CEFD300C41; +CEFD300C42; +MECL-209 PO; -MECL1TAB31 PO
== END ==
LOC: M WHC 08:07
PROVIDERS: ATTEND Nurse Practitioner Women's Health
DX: Z12.31 Encounter for screening mammogram for malignant neoplasm of breast (principal)

== ENCOUNTER 2023-05-03 18:48 | Inpatient (IN) | payer OTHER ==
[~2023-05-03] VITALS: Ht 162.6 cm; Wt 84.1 kg
[~2023-05-03 18:48] MED LIST changes: +CEFD1CAP9; -CEFD300C42
[2023-05-03 19:15] LABS: BASO # 0.1 10^3/uL (0.0-0.2); BASO % 0.6 % (0.0-1.0); EOS # 0.1 10^3/uL (0.0-0.5); EOS % 1.2 % (0.0-3.0); HEMATOCRIT 39.9 % (36.0-47.0); HEMOGLOBIN 13.1 g/dl (12.0-15.5); LYMPH # 3.9 10^3/uL (1.5-5.0); LYMPH % 38.6 % (24.0-44.0); MEAN CORPUSCULAR HEMOGLOBIN 31.6 pg (27.0-33.0); MEAN CORPUSCULAR HGB CONC 32.8 g/dl (32.0-36.5); MEAN CORPUSCULAR VOLUME 96.4 fl (80.0-96.0); MONO # 0.8 10^3/uL (0.0-0.8); MONO % 8.1 % (2.0-8.0); NEUTROPHILS # 5.1 10^3/uL (1.5-8.5); NEUTROPHILS % 51.2 % (36.0-66.0); PLATELET COUNT, AUTOMATED 309 10^3/uL (150-450); RED BLOOD COUNT 4.14 10^6/uL (4.00-5.40)
[2023-05-03 19:45] LABS: BLOOD UREA NITROGEN 8 MG/DL (9-23); CALCIUM LEVEL 8.9 MG/DL (8.5-10.1); CARBON DIOXIDE LEVEL 25 MMOL/L (20-31); CHLORIDE LEVEL 106 MMOL/L (98-107); CK-MB VALUE MASS < 1.0 NG/ML (<3.6); CREATININE FOR GFR 0.65 MG/DL (0.55-1.30); GLOMERULAR FILTRATION RATE > 60.0 (>58); GLUCOSE, FASTING 96 MG/DL (60-100); POTASSIUM SERUM 4.1 MMOL/L (3.5-5.1); SODIUM LEVEL 138 MMOL/L (136-145)
[2023-05-03 19:47] LABS: CPK CREATINE PHOSPHOKINASE 80 U/L (34-145); MB/CK RELATIVE INDEX 1.25 (< OR =4)
[2023-05-03] MEDS ORDERED: ISOVUE-370 76% 100ML VIAL As Ordered ONE (20:13)
[2023-05-03 20:28] LABS: FREE T4 0.97 NG/DL (0.89-1.76); THYROID STIMULATING HORMONE 3.712 uIU/ML (0.55-4.78)
[2023-05-03 20:59] LABS: RSV AMPLIFICATION NEGATIVE (NEGATIVE)
[2023-05-03 21:03] LABS: CK-MB VALUE MASS < 1.0 NG/ML (<3.6)
[2023-05-03 21:05] LABS: CPK CREATINE PHOSPHOKINASE 78 U/L (34-145); MB/CK RELATIVE INDEX 1.28 (< OR =4)
[2023-05-03] MEDS ORDERED: HOME MED LIST COMPLETE! XX SCH (22:50)
[2023-05-03] MEDS ORDERED: MOM 30ML SUSPENSION UDC PO PRN (23:10)
[2023-05-04 07:41] LABS: HEMATOCRIT 42.3 % (36.0-47.0); HEMOGLOBIN 13.6 g/dl (12.0-15.5); MEAN CORPUSCULAR HEMOGLOBIN 31.1 pg (27.0-33.0); MEAN CORPUSCULAR HGB CONC 32.2 g/dl (32.0-36.5); MEAN CORPUSCULAR VOLUME 96.6 fl (80.0-96.0); PLATELET COUNT, AUTOMATED 296 10^3/uL (150-450); RED BLOOD COUNT 4.38 10^6/uL (4.00-5.40)
[2023-05-04 08:07] LABS: ALBUMIN 3.3 G/DL (3.2-5.2); ALKALINE PHOSPHATASE 107 U/L (46-116); ALT/SGPT 14 U/L (7.0-40); AST/SGOT 13 U/L (<34); BILIRUBIN,TOTAL 2.2 MG/DL (0.3-1.2); BLOOD UREA NITROGEN 7 MG/DL (9-23); CALCIUM LEVEL 8.8 MG/DL (8.5-10.1); CARBON DIOXIDE LEVEL 24 MMOL/L (20-31); CHLORIDE LEVEL 107 MMOL/L (98-107); CREATININE FOR GFR 0.59 MG/DL (0.55-1.30); GLOMERULAR FILTRATION RATE > 60.0 (>58); GLUCOSE, FASTING 77 MG/DL (60-100); POTASSIUM SERUM 4.1 MMOL/L (3.5-5.1); SODIUM LEVEL 138 MMOL/L (136-145); TOTAL PROTEIN 6.8 G/DL (5.7-8.2)
[2023-05-04] MEDS: ENOXAPARIN 40MG/0.4ML SYRINGE (J1650 PER 10MG) SC SCH (08:15)
[2023-05-04 08:55] VITALS: BP 136/92; TEMP 97.9; O2SAT 99
[2023-05-04 10:02] LABS: PROCALCITONIN <0.04 ng/ml
[2023-05-04 10:20] VITALS: BP 136/92; TEMP 97.9; O2SAT 99
[2023-05-04] MEDS ORDERED: LORazepam 2 MG/ML 1ML VIAL IV ONE (11:50)
[2023-05-04 14:00] VITALS: BP 130/80; TEMP 97.5; O2SAT 97
[2023-05-04 21:32] VITALS: BP 123/81; TEMP 97.9; O2SAT 97
[2023-05-05 05:33] VITALS: BP 125/89; TEMP 97.7; O2SAT 99
[2023-05-05] MEDS ORDERED: FIOR1CAP PO (07:31)
[2023-05-05] MEDS ORDERED: RIZA10TA64 PO ×2 (07:31→08:44)
[2023-05-05] MEDS ORDERED: NORV5TAB PO (08:36)
[2023-05-05] MEDS ORDERED: SELF1KIT MC (08:37)
[2023-05-05] MEDS: ENOXAPARIN 40MG/0.4ML SYRINGE (J1650 PER 10MG) SC SCH (09:00)
[2023-05-05] MEDS ORDERED: amLODIPine 5 MG TAB PO ONE (09:00)
[2023-05-05 09:05] VITALS: BP 122/88
[2023-05-05 09:54] VITALS: BP 124/82
[2023-05-06 14:09] LABS: ANTINUCLEAR ANTIBODIES DIRECT Negative (Negative)
== END 2023-05-05 11:01 | disposition home or self-care (01) | DRG 312 ==
LOC: M ED 18:48 → M ED INP 23:08 → ENRESERV 05-04 08:15 → M MSPAV 05-04 08:57
PROVIDERS: ADMIT Family Medicine; ATTEND General Practice
PROC: B246ZZZ Ultrasonography of Right and Left Heart (ICD-10-PCS; principal; 2023-05-04)
DX: R55 Syncope and collapse (principal); R51.9 Headache, unspecified; R07.89 Other chest pain; I10 Essential (primary) hypertension; Z85.3 Personal history of malignant neoplasm of breast; Z92.21 Personal history of antineoplastic chemotherapy; Z92.3 Personal history of irradiation

== ENCOUNTER → 2023-05-12 | Outpatient (REF) | payer OTHER ==
[~2023-05-12] MED LIST changes: +FIOR1CAP PO; +NORV5TAB PO; +RIZA10TA64 PO; +SELF1KIT MC
== END ==
LOC: M SFHCLERA 16:37
PROVIDERS: ATTEND Physician Assistant
DX: J02.9 Acute pharyngitis, unspecified (principal)

== ENCOUNTER → 2024-03-23 | Outpatient (CLI) | payer OTHER ==
[~2024-03-23] MED LIST changes: +ONDA-282 PO; -ONDA4TAB6 PO
== END ==
LOC: M RAD 14:55
PROVIDERS: ATTEND Internal Medicine Medical Oncology
DX: R22.33 Localized swelling, mass and lump, upper limb, bilateral (principal); Z98.890 Other specified postprocedural states

== ENCOUNTER → 2024-03-27 | Outpatient (CLI) | payer OTHER ==
[2024-03-27 11:51] LABS: HEMATOCRIT 40.7 % (36.0-47.0); MEAN CORPUSCULAR HEMOGLOBIN 30.3 pg (27.0-33.0); MEAN CORPUSCULAR HGB CONC 31.9 g/dl (32.0-36.5); MEAN CORPUSCULAR VOLUME 94.9 fl (80.0-96.0); PLATELET COUNT, AUTOMATED 303 10^3/uL (150-450); RED BLOOD COUNT 4.29 10^6/uL (4.00-5.40); WHITE BLOOD COUNT 7.8 10^3/uL (4.0-10.0)
[2024-03-27 12:10] LABS: BLOOD UREA NITROGEN 14 MG/DL (9-23); CALCIUM LEVEL 9.3 MG/DL (8.5-10.1); CARBON DIOXIDE LEVEL 26 MMOL/L (20-31); CHLORIDE LEVEL 106 MMOL/L (98-107); CREATININE FOR GFR 0.77 MG/DL (0.55-1.30); GLOMERULAR FILTRATION RATE > 60.0 (>58); GLUCOSE, FASTING 81 MG/DL (60-100); POTASSIUM SERUM 4.2 MMOL/L (3.5-5.1); SODIUM LEVEL 141 MMOL/L (136-145)
== END ==
LOC: M RAD 10:39
PROVIDERS: ATTEND Physician Assistant Medical
DX: R60.0 Localized edema (principal)

== ENCOUNTER → 2024-05-01 | Outpatient (REF) | payer OTHER | LOC: M SFHCLERA 14:54 | DX: I10 Essential (primary) hypertension (principal); Z68.38 Body mass index [BMI] 38.0-38.9, adult; Z53.9 Procedure and treatment not carried out, unspecified reason ==

== ENCOUNTER → 2024-05-02 | Outpatient (CLI) | payer OTHER ==
[2024-05-02 10:38] LABS: BASO % 0.6 % (0.0-1.0); EOS % 0.6 % (0.0-3.0); HEMATOCRIT 40.2 % (36.0-47.0); HEMOGLOBIN 12.9 g/dl (12.0-15.5); LYMPH # 1.8 10^3/uL (1.5-5.0); LYMPH % 28.3 % (24.0-44.0); MEAN CORPUSCULAR HEMOGLOBIN 29.5 pg (27.0-33.0); MEAN CORPUSCULAR HGB CONC 32.1 g/dl (32.0-36.5); MEAN CORPUSCULAR VOLUME 91.8 fl (80.0-96.0); MONO # 0.5 10^3/uL (0.0-0.8); MONO % 7.4 % (2.0-8.0); NEUTROPHILS # 3.9 10^3/uL (1.5-8.5); NEUTROPHILS % 62.8 % (36.0-66.0); PLATELET COUNT, AUTOMATED 330 10^3/uL (150-450); RED BLOOD COUNT 4.38 10^6/uL (4.00-5.40); WHITE BLOOD COUNT 6.2 10^3/uL (4.0-10.0)
[2024-05-02 11:05] LABS: ALBUMIN 3.4 G/DL (3.2-5.2); ALKALINE PHOSPHATASE 98 U/L (35-104); ALT/SGPT 13 U/L (7.0-40); AST/SGOT 11 U/L (<34); BILIRUBIN,TOTAL 1.4 MG/DL (0.3-1.2); BLOOD UREA NITROGEN 9 MG/DL (9-23); CALCIUM LEVEL 9.3 MG/DL (8.5-10.1); CARBON DIOXIDE LEVEL 25 MMOL/L (20-31); CHLORIDE LEVEL 109 MMOL/L (98-107); CHOLESTEROL LEVEL 128 MG/DL (<200); CHOLESTEROL RISK RATIO 2.88 (<5); CREATININE FOR GFR 0.76 MG/DL (0.55-1.30); GLOMERULAR FILTRATION RATE > 60.0 (>58); GLUCOSE, FASTING 85 MG/DL (60-100); HDL CHOLESTEROL 44.4 MG/DL (>40); LDL CHOLESTEROL 71.2 MG/DL (<100); NON-HDL-C 83.6 MG/DL; POTASSIUM SERUM 4.4 MMOL/L (3.5-5.1); SODIUM LEVEL 143 MMOL/L (136-145); TOTAL PROTEIN 6.7 G/DL (5.7-8.2); TRIGLYCERIDES LEVEL 62 MG/DL (<150)
[2024-05-02 11:06] LABS: THYROID STIMULATING HORMONE 1.078 uIU/ML (0.55-4.78)
[2024-05-02 11:10] LABS: HEMOGLOBIN A1c 4.6 % (4.0-6.0)
== END ==
LOC: M LAB 09:36
DX: I10 Essential (primary) hypertension (principal); Z68.38 Body mass index [BMI] 38.0-38.9, adult

== ENCOUNTER 2024-06-13 09:56 | Day surgery (SDC) | payer OTHER ==
[~2024-06-13] VITALS: Ht 149.9 cm; Wt 86.8 kg
[~2024-06-13 09:56] MED LIST changes: +HYDR-3490 PO
[2024-06-13] MEDS ORDERED: propofoL 200 MG/20 ML VIAL As Ordered ONE (11:38)
[2024-06-13 11:51] VITALS: TEMP 98.8
[2024-06-13 12:15] VITALS: BP 135/84; O2SAT 100
== END 2024-06-13 12:25 | disposition home or self-care (01) ==
LOC: M OPP 09:56
PROVIDERS: ATTEND Surgery
DX: Z12.11 Encounter for screening for malignant neoplasm of colon (principal); K57.30 Diverticulosis of large intestine without perforation or abscess without bleeding; K63.89 Other specified diseases of intestine; I10 Essential (primary) hypertension; M19.90 Unspecified osteoarthritis, unspecified site; Z85.3 Personal history of malignant neoplasm of breast; Z92.21 Personal history of antineoplastic chemotherapy; Z92.3 Personal history of irradiation; Z88.8 Allergy status to other drugs, medicaments and biological substances; Z79.899 Other long term (current) drug therapy

== ENCOUNTER → 2024-07-02 | Outpatient (CLI) | payer OTHER | LOC: M RAD 07:10 | PROVIDERS: ATTEND Surgery | DX: K82.8 Other specified diseases of gallbladder (principal) ==

== ENCOUNTER → 2024-07-30 | Outpatient (REF) | payer OTHER | LOC: M SFHCLERA 16:58 | DX: Z01.419 Encounter for gynecological examination (general) (routine) without abnormal findings (principal); N89.8 Other specified noninflammatory disorders of vagina ==

== ENCOUNTER 2024-12-12 20:33 | Emergency (ER) | payer OTHER ==
[~2024-12-12] VITALS: Ht 149.9 cm; Wt 79.1 kg
[2024-12-12 20:41] VITALS: BP 133/82; TEMP 98.2; O2SAT 100
== END 2024-12-12 20:50 | disposition left against medical advice (07) ==
LOC: M ED 20:33
DX: Z53.21 Procedure and treatment not carried out due to patient leaving prior to being seen by health care provider (principal)

== ENCOUNTER 2025-02-04 09:57 | Emergency (ER) | payer OTHER ==
[~2025-02-04] VITALS: Ht 149.9 cm; Wt 77.8 kg
[2025-02-04] MEDS ORDERED: PHEN37.511 (10:11)
[2025-02-04] MEDS ORDERED: CYCL-707 (10:11)
[2025-02-04] MEDS: dexAMETHasone 4 MG/ML 1 ML VIAL IV ONE (11:40)
[2025-02-04 12:05] LABS: BASO # 0.1 10^3/uL (0.0-0.2); BASO % 0.6 % (0.0-1.0); EOS # 0.1 10^3/uL (0.0-0.5); EOS % 1.1 % (0.0-3.0); LYMPH # 2.6 10^3/uL (1.5-5.0); LYMPH % 30.2 % (24.0-44.0); MONO # 0.6 10^3/uL (0.0-0.8); MONO % 6.7 % (2.0-8.0); NEUTROPHILS # 5.3 10^3/uL (1.5-8.5); NEUTROPHILS % 61.2 % (36.0-66.0); PLATELET COUNT, AUTOMATED 329 10^3/uL (150-450)
[2025-02-04 12:33] LABS: CALCIUM LEVEL 8.9 MG/DL (8.5-10.1); CARBON DIOXIDE LEVEL 29 MMOL/L (20-31); CHLORIDE LEVEL 102 MMOL/L (98-107); CK-MB VALUE MASS 1.9 NG/ML (<3.6); CREATININE FOR GFR 0.78 MG/DL (0.55-1.30); GLOMERULAR FILTRATION RATE > 90.0 (>58); MAGNESIUM LEVEL 1.8 MG/DL (1.8-2.4); POTASSIUM SERUM 3.7 MMOL/L (3.5-5.1); SODIUM LEVEL 139 MMOL/L (136-145)
[2025-02-04 12:36] LABS: CPK CREATINE PHOSPHOKINASE 83 U/L (34-145); FREE T4 1.20 NG/DL (0.89-1.76); MB/CK RELATIVE INDEX 2.28 (< OR =4)
[2025-02-04 12:45] LABS: HCG, SERUM QUALITATIVE NEGATIVE (NEGATIVE)
[2025-02-04] MEDS: MAG SULF 1GM/100ML (MAG RUN) 1 GM in IV 1 EA IV ONE (13:55)
[2025-02-04 15:30] VITALS: BP 124/82
[2025-02-04 15:31] VITALS: O2SAT 100
[2025-02-04 15:37] VITALS: TEMP 98
== END 2025-02-04 15:42 | disposition home or self-care (01) ==
LOC: M ED 09:57
DX: R51.9 Headache, unspecified (principal); R55 Syncope and collapse; I10 Essential (primary) hypertension; E03.9 Hypothyroidism, unspecified; C50.919 Malignant neoplasm of unspecified site of unspecified female breast; Z88.8 Allergy status to other drugs, medicaments and biological substances; Z79.899 Other long term (current) drug therapy
CPT/HCPCS: 70450; 71045; 80048; 82550; 82553; 83735; 84439; 84443; 84484; 84703; 85025; 85379; 93005; 93041; 94760; 96365; 96375; 99285; J1100; J3360; J3475